=== PATIENT | male | born 1960 | race Caucasian/White ===

== ENCOUNTER 2022-04-30 08:24 | Inpatient (IN) | payer OTHER, SELFPAY ==
[2022-04-30] VITALS (14 sets, daily range): BP systolic 99–136; BP diastolic 43–80; PULSE 76–103; RESP 16–18; TEMP 36.3–37.3; O2SAT 76–99; BMI 32.8
[2022-04-30] MEDS: Gabapentin 600 MG Tablet PO (09:23)
[2022-04-30] MEDS: Acetaminophen 500 MG Tablet 1000 MG PO ×3 (09:23→21:02)
[2022-04-30] MEDS: Lactated Ringers 1,000 ML 999 ML IV (09:24)
[2022-04-30 09:31] LABS: Bedside Glucose 124 mg/dL (74-106)
[2022-04-30 09:38] LABS: International Normalized Ratio 1.1; Partial Thromboplast Time 28.2 Seconds (24.1-36.2); Prothrombin Time (Protime)PT. 14.2 SECONDS (11.7-14.9)
[2022-04-30 09:40] LABS: AST(SGOT) 32 U/L (15-37); Alanine Aminotransfer ALT/SGPT 55 U/L (16-61); Albumin, Serum 3.6 g/dL (3.2-5.0); Alkaline Phosphatase 78 U/L (45-117); Bilirubin, Direct 0.14 mg/dL (0.00-0.30); Globulin 4.4 g/dL (2.2-4.2); Magnesium 2.1 mg/dL (1.6-2.6)
[2022-04-30] MEDS: Magnesium 1 GM over 15 mins IV (10:43)
[2022-04-30] MEDS: TXA 1000mg in NS100 100ml (IVPB at Closure) 660 MG IV (11:20)
[2022-04-30 11:26] LABS: Erythrocyte Sedimentation Rate 57 mm/hr (0-20)
[2022-04-30 11:30] LABS: Absolute Lymphocyte Count 1.59 X10^3/uL (0.83-4.51); Absolute Neutrophil Count 9.2 X10^3/uL (2.0-7.7); Basophil# 0.06 X10^3/uL; Basophil% 0.5 % (0-1); Eosinophil# 0.31 X10^3/uL; Eosinophils% 2.5 % (0-5); Hematocrit 42.4 % (40-54); Hemoglobin 14.1 g/dL (13.0-16.5); Lymphocyte # 1.59 X10^3/ul (0.83-4.51); Lymphocyte % 12.9 % (19-41); Mean Corp Hgb Conc 33.3 g/dL (32-36); Mean Corpuscular Hgb 28.8 pg (27.0-32.0); Mean Corpuscular Volume 86.7 fL (80-94); Mean Platelet Vol. 10.7 fl (6.2-12.0); Monocyte# 1.04 X10^3/uL; Monocyte% 8.5 % (0-10); NRBC Flagged by Analyzer 0 % (0-5); Neutrophil # 9.21 X10^3/uL (2.7-7.7); Neutrophil % 74.9 % (47-70); Platelet Count 446 K/mm3 (150-450); RBC Distribution Width CV 13.7 % (11.6-14.6); RBC Distribution Width SD 43.7 fl (35.1-43.9); Red Blood Count 4.89 M/mm3 (4.6-6.2); White Blood Count 12.3 K/mm3 (4.4-11.0)
[2022-04-30] MEDS: Lactated Ringers 1,000 ML 75 ML IV ×2 (11:30→12:45)
[2022-04-30] MEDS: Cefazolin 2 GM in 0.9% Normal Saline 100 ML IV (12:21)
[2022-04-30] MEDS: TXA 1000mg in NS100 100ml (IVPB at Incision) 660 MG IV (12:48)
--- NOTE | 2022-04-30 12:58 | OP.PCM_ITS ---
Report of Operation Date of Procedure: 04/30/22 Pre-Operative Diagnosis: Right total knee postoperative draining wound Post-Operative Diagnosis: Right total knee postoperative draining wound Surgery/Procedure Performed:: Irrigation debridement with sinus tract excision right total knee with complete synovectomy and polyethylene exchange. Description of Surgical Findings:: 2 small sinus tracts from the incision were debrided. Initially the prepatellar area did not appear to communicate however there was some suspicious distal area and deep irrigation debridement was commenced. Surgeon: Jose Rafael Gonzalez water registrar: Sal Barnett Type of Anesthesia: Spinal Anesthesiologist: Juni Hatfield Special Medications: Ancef Specimen's removed: 3 separate specimens from the deep joint were sent for culture. 1 superficial specimen from the prepatellar area was sent for culture. Estimated Blood Loss (mL): 100 mL Fluids Replaced: 1500 mL crystalloid Description of Procedure: 61 yo m history of r TKA in 2 weeks presents with proximal wound breakdown and purulent drainage. Reviewed options were discussed the patient. Based on acuity of the symptoms and organism irrigation debridement with polyethylene exchange is recommended. Risks and benefits of the procedure were discussed with the patient including but not limited to blood loss, DVTs, PEs, neurovascular damage, infection, general risk of anesthesia including loss of life. Demonstrated understanding and was able to sign informed consent. On the date of procedure patient'sr lower extremity was marked in the preoperative area. The patient was then taken back to the operating room where the patient was placed on the table in the supine position. All bony prominences were identified a well-padded. Anesthesia assumed control of the C-spine and airway and remained controlled throughout the remainder of the procedure. A tourniquet was placed on the operative thigh and the leg was prepped in a sterile fashion. The surgeon then scrubbed at this time .Upon reentering the room left lower extremity was draped in a standard orthopedic fashion. A timeout was then called and everyone agreed upon the side, the site, the procedure to be performed, patient's identity and antibiotics given. A midline skin incision was made and sharp dissection was taken down through skin subcutaneous tissue and fat. The proximal portion of the wound had 2 small draining sinuses which were excised. Once we got through the initial skin incision there was a large collection of fluid in the prepatellar area with florid amount of synovium in this area. The appropriate flaps were elevated medially and laterally. At this point the superficial area in the prepatellar space was grossly debrided and 1.5 L of normal saline were used to irrigate out this area under low-pressure lavage. We explored the arthrotomy at this time there not appear to be a direct communication initially. However as we begin to remove the sutures distally there was some communication verifying her decision to proceed with deep irrigation debridement. His arthrotomy was identified and the standard medial parapatellar incision was made and the patella was subluxed laterally. The standard deep MCL release was done. At this point an aggressive synovectomy commenced. Our attention was first turned towards the subpatellar pouch and all suspicious synovium and tissues were debrided. We then directed our attention towards medial lateral gutters were these tissues were aggressively debrided. Knee was then flexed up the polyethylene was removed. Once polyethylene was removed we did the remainder of the synovium in the medial and lateral gutters and along the lateral structures and MCL. We then debrided the posterior knee. Knee was flexed up and culture was taken from the femoral notch. And also there was a membrane beneath the tibial baseplate that was removed and sent for culture. He had completed our synovectomy and were happy with the joint. We then used a chlorahexadine scrub sponge and physically scrub the metal implants using a scrub sponge but nothing abrasive. We also scrubbed the remainder of the wound with chlorhexidine. 6 L of normal saline were then irrigated throughout the wound with low-pressure lavage and the wound was once again explored. All remaining tissue that was suspicious was seen in the wound was once again irrigated with normal saline. 9 mm polyethylene was then opened and put back into place after appropriate trialing. Tourniquet was let down and hemostasis was obtained as well as possible. Once the final components were placed the wound was copiously irrigated with normal saline solution. The wound was closed in a layer arenas fashion using #1 vicryl interrupted sutures for the arthrotomy, 2-0 interrupted Vicryl for the subcuticular layer and carlotta for final skin closure. A sterile compressive dressing was then placed. The patient was then awakened from anesthesia, transferred to the [facility] and transferred to the PACU for recovery. Post op plan Patient be placed on Ancef and vancomycin overnight. Infectious disease will be consulted for postoperative IV antibiotic management. Aspirin 81 mg twice daily for DVT prophylaxis.. Continue to mobilize patient with range of motion and weightbearing as tolerated. My physician grout pump operator (PE) was a vital part of this case. They were important in appropriate retraction during the case, and protection of soft tissues during bony cuts. Their intimate knowledge of the case and my steps aided in safe and expedient completion of the procedure as well as appropriate position of the leg during the case. They were also vital in assisting with closure under my direct supervision. Complications No intraoperative complications Admit VTE Documentation VTE Present on Admission: No VTE Mechan Device Prophylaxis: SCD's and Thigh High YANELIS Hose VTE Pharm Prophylaxis ordered?: Yes
--- NOTE | 2022-04-30 14:20 | RAD_ITS ---
HISTORY post op -- AP and Lateral xray of operative knee in PACU. TECHNIQUE: XR Knee 1 or 2 Views. COMPARISON: None. FINDINGS: BONES : No acute fracture identified. No abnormal periprosthetic lucency seen. JOINTS: Right knee in place without dislocation. Blank SOFT TISSUES: Postoperative air and edema noted. RAD/Knee 1 or 2 Views IMPRESSION: Satisfactory postoperative alignment of right knee arthroplasty. Electronically Signed: Octavia Huerta MD at 14:49 EDT ,
--- NOTE | 2022-04-30 15:18 | CON.PCM.HO_ITS ---
Assessment & Plan Assessment/Plan (1) Prosthetic joint infection: PLAN: Plan 1. Right knee postoperative sinus tract with purulent drainage status post sinus tract excision, right total knee with complete synovectomy and polyethylene exchange on 04/30/2022: Patient had irrigation and drainage and sinus tract excision. PT and OT ordered. Patient voided urine spontaneously after surgery. On stool softener. Patient is on vancomycin and cefazolin. On a stool softener, senna S. On meloxicam, opioid medications and gabapentin for pain control. 2. Hypertension: Blood pressure in normal range. Patient on amlodipine, benazepril 3. Dyslipidemia: Continue home dose of statin. Patient on atorvastatin 40 mg daily, ezetimibe and Vascepa. Continued 4. Obstructive sleep apnea: Patient does not uses CPAP and does not want to use it. 5. VT prophylaxis: As per discretion of operative surgery. Aspirin 81 mg twice daily. Patient on YANELIS hose. HPI Consult Data Date of Consult: 04/30/22 HPI Narrative Reason for Consultation: Medical management of hypertension, dyslipidemia and sleep apnea HPI Narrative: JOSE MARTIN CASTREJON, is a 61 M with history of right knee postop sinus wound with purulent drainage was admitted after elective surgery. Patient had irrigation debridement, excision of sinus tract, right total knee with complete synovectomy and polyethylene exchange. Patient complains of right knee pain. He said it is more than what he had in the previous right knee arthroplasty. Patient has voided spontaneously urine. No burning micturition. No fever or chills. Denies chest pain shortness of breath, dizziness. Patient denies history of coronary artery disease CHF but has history of hypertension and dyslipidemia. Has sleep apnea but does not want to use CPAP. He does not uses oxygen at night at home. [facility] Medical History Ambulates with cane Anxiety Back pain Chewing tobacco use Easy bruising High cholesterol History of edema History of pain when walking Hypertension Loss of hearing Open wound Passed out Restless legs Shortness of breath on exertion Walker as ambulation aid Wears glasses Home Medications acetaminophen 325 mg tablet (Tylenol) 1,000 mg PO TID PAIN 04/29/22 [History Last Taken Unknown] amlodipine 5 mg tablet 5 mg PO DAILY BP 04/29/22 [History Last Taken Unknown] amlodipine 5 mg-benazepril 40 mg capsule 1 cap PO DAILY BP 04/29/22 [History Last Taken Unknown] aspirin 81 mg tablet,delayed release 81 mg PO DAILY HEART 04/29/22 [History Last Taken Unknown] atorvastatin 40 mg tablet 40 mg PO DAILY CHOLESTEROL 04/29/22 [History Last Taken Unknown] doxycycline monohydrate 100 mg capsule 100 mg PO BID ANTIBIOTIC 04/29/22 [Histor y Last Taken Unknown] ezetimibe 10 mg tablet 10 mg PO DAILY CHOLESTEROL 04/29/22 [History Last Taken Unknown] famotidine 20 mg tablet 20 mg PO DAILY SUPPLEEMNT 04/29/22 [History Last Taken Unknown] icosapent ethyl 1 gram capsule (Vascepa) 2 g PO BID SUPPLEMENT 04/29/22 [History Last Taken Unknown] melatonin 5 mg capsule 5 mg PO QHS SLEEP 04/29/22 [History Last Taken Unknown] meloxicam 15 mg tablet 7.5 mg PO DAILY PAIN 04/29/22 [History Last Taken Unknown] oxycodone 5 mg tablet 5 mg PO Q6H PRN Pain 04/29/22 [History Last Taken Unknown] Allergy/AdvReac Type Severity Reaction Status Date / Time No Known Allergies Allergy Verified 04/29/22 12:56 Surgical History Hx of total knee arthroplasty Hx of wisdom tooth extraction Social History Smoking Status: Current every day smoker tobacco type: smokeless tobacco ROS ROS Narrative Constitutional: Reports fatigue and weakness. Obese person. HEENT: Reports systems reviewed and no addt'l complaints, except as documented Respiratory/Chest: Denies chest pain, shortness of breath at rest or with exertion Gastrointestinal: Denies coffee ground emesis, hematemesis or vomiting Genitourinary: Voiding urine spontaneously. Denies burning urination or new urinary tract symptoms Musculoskeletal: Right knee surgery today, covered with dressing, ice bag and YANELIS hose, Neurologic: Denies seizure-like activity skin: Right knee postop sinus tract excision. Surgical dressing. Endocrinology: Reports systems reviewed and no addt'l complaints, except as documented Hematologic/Lymphatic: Reports systems reviewed and no addt'l complaints, except as documented Rest 14 ROS are negative except as mentioned in HPI Physical Exam Narrative Physical exam General: Alert, Oriented x3, Cooperative HEENT: Atraumatic, PERRLA, EOMI, Normocephalic Oral: Deep oropharyngeal structures not completely visualized. No Gingival or Mucosal Lesions/ Ulcerations Neck: Short and wide neck. Supple, No JVD, Negative Carotid Bruits Lungs: Air entry diminished in bilateral lung bases. No crepitation/rhonchi Cardiovascular: Regular rate, Regular Rhythm, Normal S1, Normal S2, No murmurs Abdomen: Bowel Sounds Present, Soft, Non Tender, Non-Distended : No renal angle tenderness. No suprapubic tenderness. Extremities: No edema, Capillary Refill Less than 3 Seconds Skin: No rashes, No breakdown Musculoskeletal: Right knee surgical dressing dry. Covered with ice bag. No Tenderness to Palpation of other joints or Extremities Neurological: Cranial nerves II-XII grossly intact, DTR 2+/4 and Symmetrical, Neuro grossly intact Psych/Mental Status: Flat affect. Lab / Micro Data Result Diagrams: 04/30/22 09:01 Labs: Laboratory Results - last 24 hr 04/30/22 09:00: POC Glucose 124 H 04/30/22 09:01: PT 14.2, INR 1.1, APTT 28.2 04/30/22 09:01: Magnesium 2.1, Total Bilirubin 0.50, Direct Bilirubin 0.14, AST 32, ALT 55, Alkaline Phosphatase 78, Total Protein 8.0, Albumin 3.6, Globulin 4.4 H 04/30/22 09:01: WBC 12.3 H, RBC 4.89, Hgb 14.1, Hct 42.4, MCV 86.7, MCH 28.8, MCHC 33.3, RDW Std Deviation 43.7, RDW Coeff of Maribell 13.7, Plt Count 446, MPV 10.7, Immature Gran % (Auto) 0.700, Neut % (Auto) 74.9 H, Lymph % (Auto) 12.9 L, [place] % (Auto) 8.5, Eos % (Auto) 2.5, Baso % (Auto) 0.5, Absolute Neuts (auto) 9.2 H, Absolute Lymphs (auto) 1.59, Nucleated RBC % 0 04/30/22 09:01: ESR 57 H 04/30/22 09:01: C-React Prot Ext Range 64.90 H Micro: Microbiology 04/30/22 Unknown Incision/Surgical Site Gram Stain - Final 04/30/22 Unknown Incision/Surgical Site Gram Stain - Final 04/30/22 Unknown Incision/Surgical Site Gram Stain - Final 04/30/22 Unknown Wound - Leg, Right Gram Stain - Final Radiology Impression Knee X-Ray 04/30/22 14:20 IMPRESSION: Satisfactory postoperative alignment of right knee arthroplasty. Electronically Signed: Octavia Huerta MD at 14:49 EDT , Charges/Coding Visit Charges Office Visits / Consults: [id number] IP Consult L3
[2022-04-30] MEDS: Morphine 4 MG/ML Syringe IV ×2 (15:21→18:17)
[2022-04-30] MEDS: Ensure Surgery 237 ML LIQUID PO (16:58)
[2022-04-30] MEDS: oxyCODONE 5 MG Tablet PO ×2 (16:58→21:03)
[2022-04-30] MEDS: Cefazolin 1 GM/50 ML BAG IV (20:04)
[2022-04-30] MEDS: Aspirin 81 MG TAB.CHEW PO (21:02)
[2022-04-30] MEDS: MELATONIN 10 MG TABLET 5 MG PO (21:02)
[2022-04-30] MEDS: Senna/Docusate Sodium 1 Tablet 2 TABLET PO (21:02)
[2022-05-01] VITALS (7 sets, daily range): BP systolic 113–133; BP diastolic 72–85; PULSE 75–88; RESP 16–18; TEMP 36.5–37.1; O2SAT 92–98
[2022-05-01] MEDS: Acetaminophen 500 MG Tablet 1000 MG PO ×3 (04:40→20:30)
[2022-05-01] MEDS: oxyCODONE 5 MG Tablet PO ×3 (04:40→20:29)
[2022-05-01] MEDS: Cefazolin 1 GM/50 ML BAG IV (04:43)
[2022-05-01 06:39] LABS: Hematocrit 32.3 % (40-54); Hemoglobin 10.6 g/dL (13.0-16.5); Mean Corp Hgb Conc 32.8 g/dL (32-36); Mean Corpuscular Volume 88.5 fL (80-94); Mean Platelet Vol. 10.1 fl (6.2-12.0); Platelet Count 285 K/mm3 (150-450); RBC Distribution Width CV 13.8 % (11.6-14.6); RBC Distribution Width SD 44.5 fl (35.1-43.9); Red Blood Count 3.65 M/mm3 (4.6-6.2); White Blood Count 9.1 K/mm3 (4.4-11.0)
--- NOTE | 2022-05-01 07:00 | PN.ORTHO_ITS ---
Subjective Subjective The patient was sitting in bed upon examination. Patient denies any chest pain, shortness of breath, dizziness, lightheadedness, nausea or vomiting, or calf pain. Pain is controlled on medications. No adverse overnight events. Patient overall is doing well this morning. He does have pain in the right knee but controlled on medications. He currently has incisional wound VAC with no drainage in the canister or tubing. Infectious disease was consulted but has not seen the patient as of this morning yet. He is currently on vancomycin and Ancef. Intraoperative cultures are in chart. Objective Data Objective Data Vital Signs: Vital Signs Temp Pulse Resp BP Pulse Ox O2 Del Method O2 Flow Rate 97.7 F L 80 16 113/72 95 Nasal Cannula 2 05/01/22 02:28 05/01/22 02:28 05/01/22 02:28 05/01/22 02:28 05/01/22 02:28 05/01/22 03:00 05/01/22 03:00 Oxygen Flow Rate (L/min) 2 Oxygen Delivery Method Nasal Cannula Weight: 116 kg Body Mass Index (BMI) 32.8 Intake & Output: Intake and Output for Last 24 Hours 04/29/22 04/30/22 05/01/22 23:59 23:59 23:59 Intake Total 3660.75 / 4110.75 2191.25 / 2191.25 Balance 3660.75 / 4110.75 2191.25 / 2191.25 Lab / Micro Data Result Diagrams: 05/01/22 05:30 05/01/22 05:30 Labs: Laboratory Results - last 24 hr 04/30/22 09:00: POC Glucose 124 H 04/30/22 09:01: PT 14.2, INR 1.1, APTT 28.2 04/30/22 09:01: Magnesium 2.1, Total Bilirubin 0.50, Direct Bilirubin 0.14, AST 32, ALT 55, Alkaline Phosphatase 78, Total Protein 8.0, Albumin 3.6, Globulin 4.4 H 04/30/22 09:01: WBC 12.3 H, RBC 4.89, Hgb 14.1, Hct 42.4, MCV 86.7, MCH 28.8, MCHC 33.3, RDW Std Deviation 43.7, RDW Coeff of Maribell 13.7, Plt Count 446, MPV 10.7, Immature Gran % (Auto) 0.700, Neut % (Auto) 74.9 H, Lymph % (Auto) 12.9 L, [place] % (Auto) 8.5, Eos % (Auto) 2.5, Baso % (Auto) 0.5, Absolute Neuts (auto) 9.2 H, Absolute Lymphs (auto) 1.59, Nucleated RBC % 0 04/30/22 09:01: ESR 57 H 04/30/22 09:01: C-React Prot Ext Range 64.90 H 05/01/22 05:30: WBC 9.1, RBC 3.65 L, Hgb 10.6 L, Hct 32.3 L, MCV 88.5, MCH 29.0, MCHC 32.8, RDW Std Deviation 44.5 H, RDW Coeff of Maribell 13.8, Plt Count 285, MPV 10.1 Micro: Microbiology 04/30/22 Unknown Incision/Surgical Site Gram Stain - Final 04/30/22 Unknown Incision/Surgical Site Gram Stain - Final 04/30/22 Unknown Incision/Surgical Site Gram Stain - Final 04/30/22 Unknown Wound - Leg, Right Gram Stain - Final Radiography Diagnostic Testing: Radiology Impression Knee X-Ray 04/30/22 14:20 IMPRESSION: Satisfactory postoperative alignment of right knee arthroplasty. Electronically Signed: Octavia Huerta MD at 14:49 EDT Reading Location ID and State: [facility] / [place] Tel , Service support , Physical Exam Narrative Vital signs stable and afebrile. SCDs and YANELIS hose are in place bilaterally Patient is able to plantarflex and dorsiflex actively. Sensation is intact to light touch to saphenous, sural, superficial and deep peroneal, and tibial distribution. Prevena incisional wound VAC currently in place with no drainage in canister or tubing. No surrounding erythema. Negative Homans bilaterally, negative signs and symptoms of DVT. Const alert, oriented x3 and no apparent distress Assessment & Plan Assessment/Plan (1) Prosthetic joint infection: PLAN: 1. S/P irrigation debridement with sinus tract excision right total knee with complete synovectomy and polyethylene exchange POD #1 2. Continue Pain Medications: Tylenol, meloxicam, oxycodone 3. DVT Prophylaxis: Take 81 mg aspirin twice daily for 4 weeks postoperatively for DVT prophylaxis. Patient denies previous history of DVT or pulmonary embolism 4. PT/OT: Weightbearing as tolerated with walker 5. H & H: 10.6/32.3, asymptomatic. Postoperative anemia secondary to acute blood loss versus dilutional from surgery without any intra operative complications., asymptomatic. Estimated blood loss and surgery 100 mL 6. Continue infectious disease consultation: Appreciate input with management of antibiotics. Current tissue specimen was reviewed with Gram stain positive on the prepatellar pouch with 1+ gram-positive cocci and 1+ intracellular gram- positive cocci. Culture pending. Remaining deep cultures are currently without growth on gram stain or culture. Patient is currently on vancomycin and Ancef. 7. Continue postoperative medical management per medicine 8. Continue incisional wound VAC: Currently no drainage in canister or tubing. Will remain on for 1 week postoperatively. 9. Encouraged Incentive Spirometry 10. Disposition: Patient is doing well this morning. At this time we are pablo ting on recommendations from infectious disease for antibiotics and probable PICC line with IV antibiotics for 6 weeks postoperatively. Patient will continue with physical therapy while in the hospital working on range of motion and strength. Continue with wound VAC for 1 week postoperatively. I have reviewed the [place] Automated Rx Reporting System (OARRS) report for this patient for refill pattern and other prescriber involvement as part of the appropriate surveillance for the provision of acute and chronic controlled medications. The report was requested and reviewed on the date of this entry and was considered in the prescribing process. This dictation was created using voice recognition software. Phonetic and/or grammatical errors may exist.
[2022-05-01 07:03] LABS: Anion Gap 4 (5-15); BUN 19 mg/dL (7-18); BUN/Creat Ratio 22.5 RATIO (10-20); Calcium,Total 8.4 mg/dL (8.5-10.1); Chloride 106 mmol/L (98-107); Creatinine, Serum 0.84 mg/dL (0.70-1.30); EST Glomerular Filtration Rate 99 mL/min (>60); Est Glom Filt Rate - Afr Amer 119 mL/min (>60); Estimated Creatinine Clearance 108.73 ml/min; Glucose 97 mg/dL (74-106); Potassium 4.3 mmol/L (3.5-5.1); Sodium Level 139 mmol/L (136-145)
[2022-05-01] MEDS: Ensure Surgery 237 ML LIQUID PO (08:04)
[2022-05-01] MEDS: Aspirin 81 MG TAB.CHEW PO ×2 (08:04→22:25)
[2022-05-01] MEDS: Atorvastatin Calcium 40 MG Tablet PO (08:05)
[2022-05-01] MEDS: amLODIPine 5 MG Tablet PO ×4 (08:05→14:33)
[2022-05-01] MEDS: Senna/Docusate Sodium 1 Tablet 2 TABLET PO ×2 (08:05→22:25)
[2022-05-01] MEDS: Ezetimibe 10 MG Tablet PO (08:06)
[2022-05-01] MEDS: Famotidine 20 MG Tablet PO (08:06)
[2022-05-01] MEDS: Lisinopril 40 MG Tablet PO (08:07)
--- NOTE | 2022-05-01 09:45 | PN.HOSP_ITS ---
Subjective Subjective Patient seen and examined. He has no active complaints and had an uneventful night. Review of systems is otherwise negative. He has remained hemodynamically stable. Objective Data Objective Data Vital Signs: Vital Signs Temp Pulse Resp BP Pulse Ox O2 Del Method O2 Flow Rate 97.8 F 75 18 113/72 98 Room Air 2 05/01/22 08:13 05/01/22 08:13 05/01/22 08:14 05/01/22 02:28 05/01/22 08:14 05/01/22 08:14 05/01/22 09:16 Oxygen Flow Rate (L/min) 2 Oxygen Delivery Method Room Air Weight: 255 lb 11.779 oz Body Mass Index (BMI) 32.8 Intake & Output: Intake and Output for Last 24 Hours 04/29/22 04/30/22 05/01/22 23:59 23:59 23:59 Intake Total 3660.75 / 4110.75 2191.25 / 2191.25 Balance 3660.75 / 4110.75 2191.25 / 2191.25 Lab / Micro Data Result Diagrams: 05/01/22 05:30 05/01/22 05:30 Labs: Laboratory Results - last 24 hr 04/30/22 09:01: WBC 12.3 H, RBC 4.89, Hgb 14.1, Hct 42.4, MCV 86.7, MCH 28.8, MCHC 33.3, RDW Std Deviation 43.7, RDW Coeff of Maribell 13.7, Plt Count 446, MPV 10.7, Immature Gran % (Auto) 0.700, Neut % (Auto) 74.9 H, Lymph % (Auto) 12.9 L, [place] % (Auto) 8.5, Eos % (Auto) 2.5, Baso % (Auto) 0.5, Absolute Neuts (auto) 9.2 H, Absolute Lymphs (auto) 1.59, Nucleated RBC % 0 04/30/22 09:01: ESR 57 H 04/30/22 09:01: C-React Prot Ext Range 64.90 H 05/01/22 05:30: WBC 9.1, RBC 3.65 L, Hgb 10.6 L, Hct 32.3 L, MCV 88.5, MCH 29.0, MCHC 32.8, RDW Std Deviation 44.5 H, RDW Coeff of Maribell 13.8, Plt Count 285, MPV 10.1 05/01/22 05:30: Sodium 139, Potassium 4.3, Chloride 106, Carbon Dioxide 29.0, Anion Gap 4 L, BUN 19 H, Creatinine 0.84, Estim Creat Clear Calc 108.73, Est GFR (MDRD) Af Amer 119, Est GFR (MDRD) Non-Af 99, BUN/Creatinine Ratio 22.5 H, Glucose 97, Calcium 8.4 L Micro: Microbiology 04/30/22 Unknown Wound - Leg, Right Gram Stain - Final 04/30/22 Unknown Wound - Leg, Right Wound Culture - Preliminary Staphylococcus aureus 04/30/22 Unknown Incision/Surgical Site Gram Stain - Final 04/30/22 Unknown Incision/Surgical Site Gram Stain - Final 04/30/22 Unknown Incision/Surgical Site Gram Stain - Final Radiography Diagnostic Testing: Radiology Impression Knee X-Ray 04/30/22 14:20 IMPRESSION: Satisfactory postoperative alignment of right knee arthroplasty. Electronically Signed: Octavia Huerta MD at 14:49 EDT , Physical Exam Const alert, oriented x3 and no apparent distress HEENT head/scalp atraumatic, moist oral mucous membranes and oropharynx normal Head and Scalp: normocephalic Mouth: oral and palatal mucosa normal Eyes PERRL, EOMs intact bilaterally and conjunctivae normal Neck no lymphadenopathy and supple Resp normal respiratory effort, no retractions, no use of accessory muscles and clear to auscultation bilaterally Cardio regular rate, regular rhythm, S1 normal heart sound, S2 normal heart sound and no murmurs GI normal to inspection, nondistended, normoactive bowel sounds, soft to palpation, non-tender and non-distended Extremity Extremity Narrative: intact dressing over right knee, with wound vac in place Neuro oriented x3, CN's II-XII intact bilaterally and no focal motor deficits Sensorium / Orientation: awake and alert Psych affect normal Assessment & Plan Assessment/Plan (1) Prosthetic joint infection: (2) HTN (hypertension): PLAN: Plan #Right knee post op sinus tract with purulent drainage * s/p sinus tract excision with right total knee polyethylene exchange * today is POD 1 * management as per orthopedic surgery * on IV vancomycin and cefazolin * incentive spirometry * PT/OT on board * #Hypertension: well controlled. On amlodipine and benazepril. Will continue #Dyslipidemia: on statin, ezetimibe and vascepa #SHANNA: not on CPAP DVT prophylaxis: on aspirin 81mg bid as per primary team orthopedic surgery Charges/Coding Visit Charges Inpatient E&M: 46580 Subs Hosp L2
--- NOTE | 2022-05-01 10:00 | CASEMGMT ---
RN VI Face to Face with patient for initial transition planning/care coordination assessment. RN CM introduced self and role at [facility]. Patient lying in bed, alert and oriented. Patient willing to participate in assessment and is able to answer all questions appropriately. Care providers, pharmacy, and demographics verified. Patient wishes to discharge home, will monitor for HHC for possible IV ATBs at discharge. Patient states he has no further needs or concerns at this time. CM to follow for discharge planning needs that may arise. PCP: Julio Specialists: maciel Gonzalez [facility] [place] Prescription Benefit: yes Living Will/HPOA: none LNOK: Living Arrangements: Patient lives with in a single story home with 3-4 steps with railing to enter the home. Patient states he was independent at home. Transportation: self, DME/HHC: Patient states he has walker, cane, raised toilet, and shower chair at home. No preivous HHC or SNF. CM to provide list of HHC if patient will need HHC setup at discharge. Disposition Plan: Patient to discharge home with family support and follow-up plans in place. Will monitor for HHC. Nathalie VARNER, RN, CM
--- NOTE | 2022-05-01 12:14 | PCM.CONS.GEN ---
Assessment & Plan Assessment/Plan (1) Prosthetic joint infection: PLAN: R TKA 04/14/22 at [facility]. Now s/p OR for I&D and poly exchange 04/30/[address] Gonzalez. Prepatellar pouch now growing staph aureus. No systemic symptoms. Will cover with vanc/cefazolin while cx pending. Plan will be for picc Wednesday and 6 weeks iv abx, will consider adding po rifampin for biofilm penetration prior to discharge. LFTs have been done. Will follow, thank you, d/w ortho. HPI Consult Data Date of Consult: 05/01/22 HPI Narrative Reason for Consultation: PJI HPI Narrative: JOSE MARTIN CASTREJON, is a 61 M who presented 04/30 with drainage from R knee. Had R TKA by Dr. Gonzalez at [facility] on 04/14. On 04/23, noticed new anterior blister with serous fluid. Went to PT, dressing put on it which rubbed and popped the blister. Then developed multiple purulent blisters. Contacted ortho, started on doxy, took for 3 days then taken to OR 04/[address] Gonzalez for I&D. Deep involvement was found in OR, given vanc/cefazolin sushila-op. No fever, no pain, no swelling prior to admission. Full ROS performed and neg except as noted above. [facility] Medical History Ambulates with cane Anxiety Back pain Chewing tobacco use Easy bruising High cholesterol History of edema History of pain when walking Hypertension Loss of hearing Open wound Passed out Restless legs Shortness of breath on exertion Walker as ambulation aid Wears glasses Home Medications acetaminophen 325 mg tablet (Tylenol) 1,000 mg PO TID PAIN 04/29/22 [History Last Taken Unknown] amlodipine 5 mg tablet 5 mg PO DAILY BP 04/29/22 [History Last Taken Unknown] amlodipine 5 mg-benazepril 40 mg capsule 1 cap PO DAILY BP 04/29/22 [History Last Taken Unknown] aspirin 81 mg tablet,delayed release 81 mg PO DAILY HEART 04/29/22 [History Last Taken Unknown] atorvastatin 40 mg tablet 40 mg PO DAILY CHOLESTEROL 04/29/22 [History Last Taken Unknown] doxycycline monohydrate 100 mg capsule 100 mg PO BID ANTIBIOTIC 04/29/22 [History Last Taken Unknown] ezetimibe 10 mg tablet 10 mg PO DAILY CHOLESTEROL 04/29/22 [History Last Taken Unknown] famotidine 20 mg tablet 20 mg PO DAILY SUPPLEEMNT 04/29/22 [History Last Taken Unknown] icosapent ethyl 1 gram capsule (Vascepa) 2 g PO BID SUPPLEMENT 04/29/22 [History Last Taken Unknown] melatonin 5 mg capsule 5 mg PO QHS SLEEP 04/29/22 [History Last Taken Unknown] meloxicam 15 mg tablet 7.5 mg PO DAILY PAIN 04/29/22 [History Last Taken Unknown] oxycodone 5 mg tablet 5 mg PO Q6H PRN Pain 04/29/22 [History Last Taken Unknown] Allergy/AdvReac Type Severity Reaction Status Date / Time No Known Allergies Allergy Verified 04/29/22 12:56 Surgical History Hx of total knee arthroplasty Hx of wisdom tooth extraction Social History Smoking Status: Current every day smoker tobacco type: smokeless tobacco Physical Exam Const alert, oriented x3 and no apparent distress General Appearance: cooperative and well developed HEENT normocephalic and head/scalp atraumatic Eyes PERRL and EOMs intact bilaterally Neck supple and No nodes Resp normal air movement and clear to auscultation bilaterally Cardio regular rate, regular rhythm and no murmurs GI soft to palpation, non-tender and non-distended Extremity General Extremity: Negative for edema Skin no rashes or lesions noted Skin Narrative: RLE wrapped Neuro CN's II-XII intact bilaterally Lab / Micro Data Attestation: I reviewed the patient's lab results. Result Diagrams: 05/01/22 05:30 05/01/22 05:30 Labs: Laboratory Results - last 24 hr 05/01/22 05:30: WBC 9.1, RBC 3.65 L, Hgb 10.6 L, Hct 32.3 L, MCV 88.5, MCH 29.0, MCHC 32.8, RDW Std Deviation 44.5 H, RDW Coeff of Maribell 13.8, Plt Count 285, MPV 10.1 05/01/22 05:30: Sodium 139, Potassium 4.3, Chloride 106, Carbon Dioxide 29.0, Anion Gap 4 L, BUN 19 H, Creatinine 0.84, Estim Creat Clear Calc 108.73, Est GFR (MDRD) Af Amer 119, Est GFR (MDRD) Non-Af 99, BUN/Creatinine Ratio 22.5 H, Glucose 97, Calcium 8.4 L Micro: Microbiology 04/30/22 Unknown Incision/Surgical Site Gram Stain - Final 04/30/22 Unknown Incision/Surgical Site Wound Culture - Preliminary No growth-Final to follow 04/30/22 Unknown Incision/Surgical Site Gram Stain - Final 04/30/22 Unknown Incision/Surgical Site Wound Culture - Preliminary No growth-Final to follow 04/30/22 Unknown Incision/Surgical Site Gram Stain - Final 04/30/22 Unknown Incision/Surgical Site Wound Culture - Preliminary No growth-Final to follow 04/30/22 Unknown Wound - Leg, Right Gram Stain - Final 04/30/22 Unknown Wound - Leg, Right Wound Culture - Preliminary Staphylococcus aureus Radiology Impression Knee X-Ray 04/30/22 14:20 IMPRESSION: Satisfactory postoperative alignment of right knee arthroplasty. Electronically Signed: Octavia Huerta MD at 14:49 EDT ,
--- NOTE | 2022-05-01 12:43 | PCM.RX.CS ---
Consult Pharmacy has been consulted to manage selected antiobiotic: Vancomycin Type of Consult: New start Suspected Infection: Other Labs: Sodium 139 mmol/L (136-145) 05/01/22 05:30 Potassium 4.3 mmol/L (3.5-5.1) 05/01/22 05:30 Chloride 106 mmol/L (98-107) 05/01/22 05:30 Carbon Dioxide 29.0 mmol/L (21.0-32.0) 05/01/22 05:30 Anion Gap 4 (5-15) L 05/01/22 05:30 BUN 19 mg/dL (7-18) H 05/01/22 05:30 Creatinine 0.84 mg/dL (0.70-1.30) 05/01/22 05:30 Est GFR (MDRD) Af Amer 119 mL/min (>60) 05/01/22 05:30 Est GFR (MDRD) Non-Af 99 mL/min (>60) 05/01/22 05:30 BUN/Creatinine Ratio 22.5 RATIO (10-20) H 05/01/22 05:30 Glucose 97 mg/dL (74-106) 05/01/22 05:30 Microbiology: Microbiology 04/30/22 Unknown Incision/Surgical Site Gram Stain - Final 04/30/22 Unknown Incision/Surgical Site Wound Culture - Preliminary No growth-Final to follow 04/30/22 Unknown Incision/Surgical Site Gram Stain - Final 04/30/22 Unknown Incision/Surgical Site Wound Culture - Preliminary No growth-Final to follow 04/30/22 Unknown Incision/Surgical Site Gram Stain - Final 04/30/22 Unknown Incision/Surgical Site Wound Culture - Preliminary No growth-Final to follow 04/30/22 Unknown Wound - Leg, Right Gram Stain - Final 04/30/22 Unknown Wound - Leg, Right Wound Culture - Preliminary Staphylococcus aureus Goal Trough: 15-20 mcg/mL Pharmacy Plan for Drug Dosing: NEW START IV VANCOMYCIN Consulting Physician: Dr. Le Indication: Prosthetic Knee infection Goal Trough: 15-20 SrCr: 0.84 CrCl: 108 mL/min Comments: Patient was ordered a loading dose and high trough. Patient had 1750mg IV x2 (preop and 12hrs post-op, last dose 05/01 @0227). Since the patient has already had 2 doses of q12hr dosing, will not give loading dose. Will also schedule a trough prior to the 5th TOTAL vancomycin dose to determine if Q8hr frequency is appropriate for this patient. Vancomycin Dose: 1250mg IV Q8h to start 05/02 @1300 (~11hrs from last post-op dose) Pending Level: 05/02/22 @0430, prior to 5th TOTAL dose of vancomycin Pharmacy Service will continue to monitor and adjust dosing as required.
--- NOTE | 2022-05-01 13:16 | CASEMGMT ---
Addendum entered by Priyanka Melchor 05/01/22 16:50: states she would be willing to learn IV atb infusion and she also has a friend who is a nurse that will be assisting w/IV infusion @ home as well. Addendum entered by Priyanka Melchor 05/01/22 15:42: Pt had been going to [facility] for OP therapy. and pt made aware insurance will not approve for both HHC and OP therapy at the same time and therapy can be done @ home w/HHC. They voice understanding and agreeable to same. Addendum entered by Priyanka Melchor 05/01/22 15:25: Per [facility], pt's insurance, MMO, requires prior auth for HHC. She states she will submit for prior auth today for potential SOC Wednesday. and pt made aware. Order placed for HHC: SN and PT/OT. Addendum entered by Priyanka Melchor 05/01/22 15:07: ASHA LEBRON to room. @ bedside. Discussed HHC, IV atb's, and infusion co and questions answered. looked over HHC and infusion co lists. 1st choice for HHC is [facility] and [facility] for infusion co. Call placed to [facility] and referral made. She was made aware anticipated d/c is Wed or . Plan is for PICC insertion on Wednesday and cultures are still pending before final determination of what IV atb's pt will be discharged home on will be made. She states they are able to accept pt. and pt made aware. ASHA LEBRON to f/u with [facility] on Wednesday re: further details once available. ASHA LEBRON has spoken w/Toya @ [facility] for insurance benefits. Per Toya, pt has met his deductible for the year and he will be covered @ 100%. and pt made aware. Original Note: ASHA LEBRON NOTE: ASHA LEBRON to room to talk w/pt, who is sitting up in recliner chair in room. Awake/alert. Introduced self and role. A list of HHC providers including quality and resource use data and consistent with the patient?s preferred geographic region, medical needs, and insurance network were provided from the [employer] Guide. Pt also provided w/list of infusion companies for IV atb/supplies. Pt states his will be coming in to see him soon and he will review the lists w/her. Radha SEAMANN RN CM
[2022-05-01] MEDS: Cefazolin 2 GM in 0.9% Normal Saline 100 ML IV ×2 (13:25→23:01)
[2022-05-01] MEDS: 0.9% NaCl Peripheral Flush Adult/Peds IV (13:31)
[2022-05-01] MEDS: MELATONIN 10 MG TABLET 5 MG PO (22:25)
[2022-05-02] MEDS: oxyCODONE 5 MG Tablet PO ×3 (00:31→12:25)
[2022-05-02 02:30] VITALS: BP 120/85; PULSE 75; RESP 16; TEMP 36.4; O2SAT 99
[2022-05-02 04:46] LABS: Hemoglobin 10.3 g/dL (13.0-16.5); Mean Corp Hgb Conc 32.2 g/dL (32-36); Mean Corpuscular Hgb 28.1 pg (27.0-32.0); Mean Corpuscular Volume 87.4 fL (80-94); Platelet Count 303 K/mm3 (150-450); RBC Distribution Width CV 13.3 % (11.6-14.6); RBC Distribution Width SD 42.8 fl (35.1-43.9); Red Blood Count 3.66 M/mm3 (4.6-6.2); White Blood Count 7.8 K/mm3 (4.4-11.0)
[2022-05-02 05:08] LABS: Vancomycin, Trough Level 15.9 ug/mL (5.0-15.0)
[2022-05-02] MEDS: Acetaminophen 500 MG Tablet 1000 MG PO ×3 (05:11→23:11)
--- NOTE | 2022-05-02 05:15 | PCM.RX.CS ---
Consult Pharmacy has been consulted to manage selected antiobiotic: Vancomycin Type of Consult: Follow-up Labs: Sodium 139 mmol/L (136-145) 05/01/22 05:30 Potassium 4.3 mmol/L (3.5-5.1) 05/01/22 05:30 Chloride 106 mmol/L (98-107) 05/01/22 05:30 Carbon Dioxide 29.0 mmol/L (21.0-32.0) 05/01/22 05:30 Anion Gap 4 (5-15) L 05/01/22 05:30 BUN 19 mg/dL (7-18) H 05/01/22 05:30 Creatinine 0.84 mg/dL (0.70-1.30) 05/01/22 05:30 Est GFR (MDRD) Af Amer 119 mL/min (>60) 05/01/22 05:30 Est GFR (MDRD) Non-Af 99 mL/min (>60) 05/01/22 05:30 BUN/Creatinine Ratio 22.5 RATIO (10-20) H 05/01/22 05:30 Glucose 97 mg/dL (74-106) 05/01/22 05:30 Vancomycin Trough 15.9 ug/mL (5.0-15.0) H 05/02/22 04:35 Microbiology: Microbiology 04/30/22 Unknown Incision/Surgical Site Gram Stain - Final 04/30/22 Unknown Incision/Surgical Site Wound Culture - Preliminary No growth-Final to follow 04/30/22 Unknown Incision/Surgical Site Gram Stain - Final 04/30/22 Unknown Incision/Surgical Site Wound Culture - Preliminary No growth-Final to follow 04/30/22 Unknown Incision/Surgical Site Gram Stain - Final 04/30/22 Unknown Incision/Surgical Site Wound Culture - Preliminary No growth-Final to follow 04/30/22 Unknown Wound - Leg, Right Gram Stain - Final 04/30/22 Unknown Wound - Leg, Right Wound Culture - Preliminary Staphylococcus aureus Goal Trough: 15-20 mcg/mL Pharmacy Plan for Drug Dosing: Pharmacy Service will continue to monitor and adjust dosing as required. TROUGH 15.9 @ 8 HRS. NO CHANGES, FOLLOW UP TROUGH IN 2 DAYS Follow-Up Labs: Trough Vancomycin Labs to be done on [date and time ordered]: 05/04 @ 2711
[2022-05-02] MEDS: Cefazolin 2 GM in 0.9% Normal Saline 100 ML IV ×3 (06:53→23:08)
[2022-05-02 08:30] VITALS: BP 112/74; PULSE 88; RESP 16; TEMP 36.6; O2SAT 95
[2022-05-02 08:40] VITALS: BP 112/74; PULSE 88; RESP 16; TEMP 36.6; O2SAT 95
--- NOTE | 2022-05-02 08:40 | PN.ORTHO_ITS ---
Subjective Subjective The patient was sitting in bed upon examination. Patient denies any chest pain, shortness of breath, dizziness, lightheadedness, nausea or vomiting, or calf pain. Pain is controlled on medications. No adverse overnight events. Patient states he feels burning sensation over the anterior knee. He thought that he was having some reaction to the tape from the incisional wound VAC. There is no erythema or signs of blistering or skin irritation from the tape on exam. Objective Data Objective Data Vital Signs: Vital Signs Temp Pulse Resp BP Pulse Ox O2 Del Method O2 Flow Rate 97.6 F L 75 16 120/85 H 99 Nasal Cannula 2 05/02/22 02:30 05/02/22 02:30 05/02/22 02:30 05/02/22 02:30 05/02/22 02:30 05/02/22 03:00 05/02/22 03:00 Oxygen Flow Rate (L/min) 2 Oxygen Delivery Method Nasal Cannula Weight: 116 kg Body Mass Index (BMI) 32.8 Intake & Output: Intake and Output for Last 24 Hours 04/30/22 05/01/22 05/02/22 23:59 23:59 23:59 Intake Total 3660.75 / 4110.75 4786.25 / 5336.25 1375 / 1375 Balance 3660.75 / 4110.75 4786.25 / 5336.25 1375 / 1375 Lab / Micro Data Result Diagrams: 05/02/22 04:35 05/01/22 05:30 Labs: Laboratory Results - last 24 hr 05/02/22 04:35: WBC 7.8, RBC 3.66 L, Hgb 10.3 L, Hct 32.0 L, MCV 87.4, MCH 28.1, MCHC 32.2, RDW Std Deviation 42.8, RDW Coeff of Maribell 13.3, Plt Count 303, MPV 10 .0 05/02/22 04:35: Vancomycin Trough 15.9 H Micro: Microbiology 04/30/22 Unknown Wound - Leg, Right Gram Stain - Final 04/30/22 Unknown Wound - Leg, Right Wound Culture - Final Meth. resistant Staph. aureus 04/30/22 Unknown Incision/Surgical Site Gram Stain - Final 04/30/22 Unknown Incision/Surgical Site Wound Culture - Preliminary No growth-Final to follow 04/30/22 Unknown Incision/Surgical Site Gram Stain - Final 04/30/22 Unknown Incision/Surgical Site Wound Culture - Preliminary No growth-Final to follow 04/30/22 Unknown Incision/Surgical Site Gram Stain - Final 04/30/22 Unknown Incision/Surgical Site Wound Culture - Preliminary No growth-Final to follow Physical Exam Narrative Vital signs stable and afebrile. SCDs and YANELIS hose are in place bilaterally Patient is able to plantarflex and dorsiflex actively. Sensation is intact to light touch to saphenous, sural, superficial and deep peroneal, and tibial distribution. Prevena incisional wound VAC intact and there is no surrounding erythema or skin irritation from the tape. No drainage in the canister or tubing. Negative Homans bilaterally, negative signs and symptoms of DVT. Const alert, oriented x3 and no apparent distress Assessment & Plan Assessment/Plan (1) Prosthetic joint infection: PLAN: 1. S/P irrigation debridement with sinus tract excision right total knee with complete synovectomy and polyethylene exchange POD #2 2. Continue Pain Medications: Tylenol, meloxicam, oxycodone 3. DVT Prophylaxis: Take 81 mg aspirin twice daily for 4 weeks postoperatively for DVT prophylaxis. Patient denies previous history of DVT or pulmonary embolism 4. PT/OT: Weightbearing as tolerated with walker 5. H & H: 10.3/32.0, asymptomatic. Postoperative anemia secondary to acute blood loss versus dilutional from surgery without any intra operative complications., asymptomatic. Estimated blood loss and surgery 100 mL 6. Continue infectious disease consultation: Prepatellar tissue did grow out MRSA. Deep cultures have remained negative. Patient will continue with vancomy gila and cefazolin. Per infectious disease note plan for addition of oral rifampin for biofilm penetration prior to discharge. Plan for PICC line on Wednesday and 6 weeks IV antibiotics. Case management currently involved with setting up assistance for IV antibiotics with home health. It does appear that his is acceptable for training for administration of medications at home. Patient also states they have some nurse friends that can help out. 7. Continue postoperative medical management per medicine 8. Continue incisional wound VAC: Currently no drainage in canister or tubing. Will remain on for 1 week postoperatively. There is no skin irritation or erythema from the tape. 9. Encouraged Incentive Spirometry 10. Disposition: Patient overall is doing well this morning. Pain is been controlled. Continue with formal physical therapy. Continue with the wound VAC at this time. Continue with recommendations from infectious disease with plan for PICC line on Wednesday and IV antibiotics for 6 weeks postoperatively. We will continue to follow cultures. I have reviewed the [place] Automated Rx Reporting System (OARRS) report for this patient for refill pattern and other prescriber involvement as part of the appropriate surveillance for the provision of acute and chronic controlled medications. The report was requested and reviewed on the date of this entry and was considered in the prescribing process. This dictation was created using voice recognition software. Phonetic and/or grammatical errors may exist.
[2022-05-02] MEDS: Ensure Surgery 237 ML LIQUID PO (09:00)
[2022-05-02] MEDS: Aspirin 81 MG TAB.CHEW PO ×2 (09:02→23:12)
[2022-05-02] MEDS: amLODIPine 5 MG Tablet PO ×2 (09:02→09:08)
[2022-05-02] MEDS: Atorvastatin Calcium 40 MG Tablet PO (09:02)
[2022-05-02] MEDS: Senna/Docusate Sodium 1 Tablet 2 TABLET PO ×2 (09:03→23:11)
[2022-05-02] MEDS: Famotidine 20 MG Tablet PO (09:03)
[2022-05-02] MEDS: Ezetimibe 10 MG Tablet PO (09:04)
[2022-05-02] MEDS: Lisinopril 40 MG Tablet PO (09:04)
[2022-05-02] MEDS: Meloxicam 7.5 MG Tablet PO ×2 (09:04→23:11)
--- NOTE | 2022-05-02 09:31 | PN.HOSP_ITS ---
Subjective Subjective Patient seen and examined. He has no complains and feels well. He had an uneventful night and review of systems is otherwise negative. He has remained hemodynamically stable. Objective Data Objective Data Vital Signs: Vital Signs Temp Pulse Resp BP Pulse Ox O2 Del Method O2 Flow Rate 97.8 F 88 16 112/74 95 Room Air 2 05/02/22 08:40 05/02/22 08:40 05/02/22 08:40 05/02/22 08:40 05/02/22 08:40 05/02/22 08:40 05/02/22 08:40 Oxygen Flow Rate (L/min) 2 Oxygen Delivery Method Room Air Weight: 255 lb 11.779 oz Body Mass Index (BMI) 32.8 Intake & Output: Intake and Output for Last 24 Hours 04/30/22 05/01/22 05/02/22 23:59 23:59 23:59 Intake Total 3660.75 / 4110.75 4786.25 / 5336.25 1375 / 1375 Balance 3660.75 / 4110.75 4786.25 / 5336.25 1375 / 1375 Lab / Micro Data Result Diagrams: 05/02/22 04:35 05/01/22 05:30 Labs: Laboratory Results - last 24 hr 05/02/22 04:35: WBC 7.8, RBC 3.66 L, Hgb 10.3 L, Hct 32.0 L, MCV 87.4, MCH 28.1, MCHC 32.2, RDW Std Deviation 42.8, RDW Coeff of Maribell 13.3, Plt Count 303, MPV 10.0 05/02/22 04:35: Vancomycin Trough 15.9 H Micro: Microbiology 04/30/22 Unknown Wound - Leg, Right Gram Stain - Final 04/30/22 Unknown Wound - Leg, Right Wound Culture - Final Meth. resistant Staph. aureus 04/30/22 Unknown Incision/Surgical Site Gram Stain - Final 04/30/22 Unknown Incision/Surgical Site Wound Culture - Preliminary No growth-Final to follow 04/30/22 Unknown Incision/Surgical Site Gram Stain - Final 04/30/22 Unknown Incision/Surgical Site Wound Culture - Preliminary No growth-Final to follow 04/30/22 Unknown Incision/Surgical Site Gram Stain - Final 04/30/22 Unknown Incision/Surgical Site Wound Culture - Preliminary No growth-Final to follow Physical Exam Const alert, oriented x3 and no apparent distress HEENT head/scalp atraumatic, moist oral mucous membranes and oropharynx normal Head and Scalp: normocephalic Mouth: oral and palatal mucosa normal Eyes PERRL, EOMs intact bilaterally and conjunctivae normal Neck no lymphadenopathy and supple Resp normal respiratory effort, no retractions, no use of accessory muscles and clear to auscultation bilaterally Cardio regular rate, regular rhythm, S1 normal heart sound, S2 normal heart sound and no murmurs GI normal to inspection, nondistended, normoactive bowel sounds, soft to palpation, non-tender and non-distended Extremity Extremity Narrative: intact dressing over right knee, with wound vac in place Neuro oriented x3, CN's II-XII intact bilaterally, moves all extremities and no focal motor deficits Sensorium / Orientation: awake and alert Psych affect normal Assessment & Plan Assessment/Plan (1) Prosthetic joint infection: (2) HTN (hypertension): PLAN: Plan #Right knee post op sinus tract with purulent drainage * s/p sinus tract excision with right total knee polyethylene exchange * today is POD 2 * management as per orthopedic surgery * on IV vancomycin and cefazolin; cultures are pending * incentive spirometry * PT/OT on board * #Hypertension: well controlled. On amlodipine and benazepril. Will continue #Dyslipidemia: on statin, ezetimibe and vascepa #SHANNA: not on CPAP DVT prophylaxis: on aspirin 81mg bid as per primary team orthopedic surgery Charges/Coding Visit Charges Inpatient E&M: 74220 Subs Hosp L2
[2022-05-02] MEDS: 0.9% NaCl Peripheral Flush Adult/Peds IV ×2 (14:57→18:20)
[2022-05-02 16:29] VITALS: BP 115/78; PULSE 84; RESP 16; TEMP 37.1; O2SAT 95
[2022-05-02 16:30] VITALS: BP 115/78; PULSE 84; RESP 16; TEMP 37.1; O2SAT 95
[2022-05-02 22:30] VITALS: BP 118/84; PULSE 80; RESP 16; TEMP 36.9; O2SAT 98
[2022-05-02] MEDS: MELATONIN 10 MG TABLET 5 MG PO (23:11)
[2022-05-03] VITALS (8 sets, daily range): BP systolic 123–128; BP diastolic 68–85; PULSE 80–85; RESP 16; TEMP 36.4–37.3; O2SAT 94–97
[2022-05-03] MEDS: Acetaminophen 500 MG Tablet 1000 MG PO ×3 (06:25→22:51)
[2022-05-03] MEDS: Cefazolin 2 GM in 0.9% Normal Saline 100 ML IV ×3 (06:25→22:50)
[2022-05-03 07:24] LABS: Hematocrit 31.9 % (40-54); Hemoglobin 10.8 g/dL (13.0-16.5); Mean Corp Hgb Conc 33.9 g/dL (32-36); Mean Corpuscular Hgb 29.1 pg (27.0-32.0); Mean Platelet Vol. 10.1 fl (6.2-12.0); Platelet Count 304 K/mm3 (150-450); RBC Distribution Width CV 13.3 % (11.6-14.6); RBC Distribution Width SD 41.8 fl (35.1-43.9); Red Blood Count 3.71 M/mm3 (4.6-6.2); White Blood Count 6.4 K/mm3 (4.4-11.0)
--- NOTE | 2022-05-03 07:52 | PN.ORTHO_ITS ---
Subjective Subjective The patient was sitting in bed sleeping upon examination. Patient denies any chest pain, shortness of breath, dizziness, lightheadedness, nausea or vomiting, or calf pain. Pain is controlled on medications. No adverse overnight events. Overall patient has been stable and no complaints this morning. We are waiting through the weekend to have PICC line placed tomorrow and final antibiotics set up from infectious disease for discharge. Cultures have been stable with no change from yesterday.. Objective Data Objective Data Vital Signs: Vital Signs Temp Pulse Resp BP Pulse Ox O2 Del Method O2 Flow Rate 98.4 F 80 16 128/85 H 97 Nasal Cannula 2 05/03/22 04:44 05/03/22 04:44 05/03/22 04:44 05/03/22 04:44 05/03/22 04:44 05/03/22 04:44 05/03/22 04:44 Oxygen Flow Rate (L/min) 2 Oxygen Delivery Method Nasal Cannula Weight: 116 kg Body Mass Index (BMI) 32.8 Intake & Output: Intake and Output for Last 24 Hours 05/01/22 05/02/22 05/03/22 23:59 23:59 23:59 Intake Total 4786.25 / 5336.25 3585 / 3585 385 / 385 Balance 4786.25 / 5336.25 3585 / 3585 385 / 385 Lab / Micro Data Result Diagrams: 05/03/22 06:15 05/01/22 05:30 Labs: Laboratory Results - last 24 hr 05/03/22 06:15: WBC 6.4, RBC 3.71 L, Hgb 10.8 L, Hct 31.9 L, MCV 86.0, MCH 29.1, MCHC 33.9 D, RDW Std Deviation 41.8, RDW Coeff of Maribell 13.3, Plt Count 304, MPV 10.1 Micro: Microbiology 04/30/22 Unknown Incision/Surgical Site Gram Stain - Final 04/30/22 Unknown Incision/Surgical Site Wound Culture - Final No growth aerobically. 04/30/22 Unknown Incision/Surgical Site Anaerobic Culture - Preliminary No growth in 48 hours. 04/30/22 Unknown Incision/Surgical Site Gram Stain - Final 04/30/22 Unknown Incision/Surgical Site Wound Culture - Final No growth aerobically. 04/30/22 Unknown Incision/Surgical Site Anaerobic Culture - Preliminary No growth in 48 hours. 04/30/22 Unknown Incision/Surgical Site Gram Stain - Final 04/30/22 Unknown Incision/Surgical Site Wound Culture - Final No growth aerobically. 04/30/22 Unknown Incision/Surgical Site Anaerobic Culture - Preliminary No growth in 48 hours. 04/30/22 Unknown Wound - Leg, Right Gram Stain - Final 04/30/22 Unknown Wound - Leg, Right Wound Culture - Final Meth. resistant Staph. aureus 04/30/22 Unknown Wound - Leg, Right Anaerobic Culture - Final No anaerobic bacteria isolated. Physical Exam Narrative Vital signs stable and afebrile. Patient is able to plantarflex and dorsiflex actively. Sensation is intact to light touch to saphenous, sural, superficial and deep peroneal, and tibial distribution. Prevena wound VAC in place with no skin irritation or erythema. No drainage in the tubing or canister. SCDs and YANELIS hose are in place bilaterally Negative Homans bilaterally, negative signs and symptoms of DVT. Const alert, oriented x3 and no apparent distress Assessment & Plan Assessment/Plan (1) Prosthetic joint infection: PLAN: 1. S/P irrigation debridement with sinus tract excision right total knee with complete synovectomy and polyethylene exchange POD #3 2. Continue Pain Medications: Tylenol, meloxicam, oxycodone 3. DVT Prophylaxis: Take 81 mg aspirin twice daily for 4 weeks postoperatively for DVT prophylaxis. Patient denies previous history of DVT or pulmonary embolism 4. PT/OT: Weightbearing as tolerated with walker 5. H & H: 10.8/31.9, asymptomatic. Postoperative anemia secondary to acute blood loss versus dilutional from surgery without any intra operative complications., asymptomatic. 6. Continue infectious disease consultation: Cultures have been reviewed again and no change from yesterday. Prepatellar tissue did grow out MRSA. Deep cultures have remained negative. Patient will continue with vancomycin and cefazolin. Per infectious disease note plan for addition of oral rifampin for biofilm penetration prior to discharge. Plan for PICC line on Wednesday and 6 weeks IV antibiotics. Case management currently involved with setting up assistance for IV antibiotics with home health. It does appear that his is acceptable for training for administration of medications at home. Patient also states they have some nurse friends that can help out. 7. Continue postoperative medical management per medicine 8. Continue incisional wound VAC: Currently no drainage in canister or tubing. There is no skin irritation or erythema from the tape. Plan will be for removal of Prevena wound VAC on May 08, 2022. At that time we will use ABD over the incision. 9. Encouraged Incentive Spirometry 10. Disposition: Patient is doing well and orthopedically stable today. We are waiting for patient to have PICC line established tomorrow as well as final determination of antibiotics from infectious disease. Plan will be hopefully for discharge home tomorrow. Case management is involved with setting up home health therapy for IV antibiotics. He will continue with physical therapy while in the hospital. We will continue to follow the cultures while in the hospital. Patient's pain is been well controlled. He is tolerating the wound VAC. I have reviewed the [place] Automated Rx Reporting System (OARRS) report for this patient for refill pattern and other prescriber involvement as part of the appropriate surveillance for the provision of acute and chronic controlled medications. The report was requested and reviewed on the date of this entry and was considered in the prescribing process. This dictation was created using voice recognition software. Phonetic and/or grammatical errors may exist.
[2022-05-03] MEDS: Ensure Surgery 237 ML LIQUID PO ×2 (08:10→17:11)
[2022-05-03] MEDS: Senna/Docusate Sodium 1 Tablet 2 TABLET PO ×2 (09:10→22:51)
[2022-05-03] MEDS: Atorvastatin Calcium 40 MG Tablet PO (09:10)
[2022-05-03] MEDS: Meloxicam 7.5 MG Tablet PO ×2 (09:10→22:51)
[2022-05-03] MEDS: Famotidine 20 MG Tablet PO (09:10)
[2022-05-03] MEDS: Aspirin 81 MG TAB.CHEW PO ×2 (09:10→22:50)
[2022-05-03] MEDS: Lisinopril 40 MG Tablet PO (09:11)
[2022-05-03] MEDS: amLODIPine 5 MG Tablet PO (09:11)
[2022-05-03] MEDS: Ezetimibe 10 MG Tablet PO (09:11)
--- NOTE | 2022-05-03 10:08 | PN.HOSP_ITS ---
Subjective Subjective Patient seen and examined. He had no complaints today. He had an uneventful night and review of systems is otherwise negative. Objective Data Objective Data Vital Signs: Vital Signs Temp Pulse Resp BP Pulse Ox O2 Del Method O2 Flow Rate 99.1 F 81 16 124/81 H 95 Room Air 2 05/03/22 08:00 05/03/22 08:00 05/03/22 08:00 05/03/22 08:00 05/03/22 08:00 05/03/22 09:02 05/03/22 08:00 Oxygen Flow Rate (L/min) 2 Oxygen Delivery Method Room Air Weight: 255 lb 11.779 oz Body Mass Index (BMI) 32.8 Intake & Output: Intake and Output for Last 24 Hours 05/01/22 05/02/22 05/03/22 23:59 23:59 23:59 Intake Total 4786.25 / 5336.25 3585 / 3585 385 / 385 Balance 4786.25 / 5336.25 3585 / 3585 385 / 385 Lab / Micro Data Result Diagrams: 05/03/22 06:15 05/01/22 05:30 Labs: Laboratory Results - last 24 hr 05/03/22 06:15: WBC 6.4, RBC 3.71 L, Hgb 10.8 L, Hct 31.9 L, MCV 86.0, MCH 29.1, MCHC 33.9 D, RDW Std Deviation 41.8, RDW Coeff of Maribell 13.3, Plt Count 304, MPV 10.1 Micro: Microbiology 04/30/22 Unknown Incision/Surgical Site Gram Stain - Final 04/30/22 Unknown Incision/Surgical Site Wound Culture - Final No growth aerobically. 04/30/22 Unknown Incision/Surgical Site Anaerobic Culture - Preliminary No growth in 48 hours. 04/30/22 Unknown Incision/Surgical Site Gram Stain - Final 04/30/22 Unknown Incision/Surgical Site Wound Culture - Final No growth aerobically. 04/30/22 Unknown Incision/Surgical Site Anaerobic Culture - Preliminary No growth in 48 hours. 04/30/22 Unknown Incision/Surgical Site Gram Stain - Final 04/30/22 Unknown Incision/Surgical Site Wound Culture - Final No growth aerobically. 04/30/22 Unknown Incision/Surgical Site Anaerobic Culture - Preliminary No growth in 48 hours. 04/30/22 Unknown Wound - Leg, Right Gram Stain - Final 04/30/22 Unknown Wound - Leg, Right Wound Culture - Final Meth. resistant Staph. aureus 04/30/22 Unknown Wound - Leg, Right Anaerobic Culture - Final No anaerobic bacteria isolated. Physical Exam Const alert, oriented x3 and no apparent distress HEENT head/scalp atraumatic, moist oral mucous membranes and oropharynx normal Head and Scalp: normocephalic Mouth: oral and palatal mucosa normal Eyes PERRL, EOMs intact bilaterally and conjunctivae normal Neck no lymphadenopathy and supple Resp normal respiratory effort, no retractions, no use of accessory muscles and clear to auscultation bilaterally Cardio regular rate, regular rhythm, S1 normal heart sound, S2 normal heart sound and no murmurs GI normal to inspection, nondistended, normoactive bowel sounds, soft to palpation, non-tender and non-distended Extremity Extremity Narrative: intact dressing over right knee, with wound vac in place Neuro oriented x3, CN's II-XII intact bilaterally, moves all extremities and no focal motor deficits Sensorium / Orientation: awake and alert Psych affect normal Assessment & Plan Assessment/Plan (1) Prosthetic joint infection: (2) HTN (hypertension): PLAN: Plan #Right knee post op sinus tract with purulent drainage * s/p sinus tract excision with right total knee polyethylene exchange * today is POD 3 * management as per orthopedic surgery * on IV vancomycin and cefazolin; cultures are pending * incentive spirometry * PT/OT on board * to have PICC line inserted tomorrow, for 6 weeks of IV antibiotics upon discharge * ID on board * #Hypertension: well controlled. On amlodipine and benazepril. #Dyslipidemia: on statin, ezetimibe and vascepa #SHANNA: not on CPAP DVT prophylaxis: on aspirin 81mg bid as per primary team orthopedic surgery Charges/Coding Visit Charges Inpatient E&M: 68641 Subs Hosp L2
[2022-05-03] MEDS: MELATONIN 10 MG TABLET 5 MG PO (22:51)
[2022-05-04 03:00] VITALS: BP 109/74; PULSE 75; RESP 16; TEMP 36.7; O2SAT 98
[2022-05-04 03:07] VITALS: BP 109/74; PULSE 75; RESP 16; TEMP 36.7; O2SAT 98
[2022-05-04 04:51] LABS: Hematocrit 33.7 % (40-54); Hemoglobin 11.4 g/dL (13.0-16.5); Mean Corp Hgb Conc 33.8 g/dL (32-36); Mean Corpuscular Hgb 28.7 pg (27.0-32.0); Mean Corpuscular Volume 84.9 fL (80-94); Mean Platelet Vol. 9.7 fl (6.2-12.0); Platelet Count 353 K/mm3 (150-450); RBC Distribution Width CV 13.2 % (11.6-14.6); RBC Distribution Width SD 40.7 fl (35.1-43.9); Red Blood Count 3.97 M/mm3 (4.6-6.2); White Blood Count 7.4 K/mm3 (4.4-11.0)
[2022-05-04 05:35] LABS: Vancomycin, Trough Level 18.9 ug/mL (5.0-15.0)
--- NOTE | 2022-05-04 06:11 | PCM.RX.CS ---
Consult Pharmacy has been consulted to manage selected antiobiotic: Vancomycin Type of Consult: Follow-up Labs: Sodium 139 mmol/L (136-145) 05/01/22 05:30 Potassium 4.3 mmol/L (3.5-5.1) 05/01/22 05:30 Chloride 106 mmol/L (98-107) 05/01/22 05:30 Carbon Dioxide 29.0 mmol/L (21.0-32.0) 05/01/22 05:30 Anion Gap 4 (5-15) L 05/01/22 05:30 BUN 19 mg/dL (7-18) H 05/01/22 05:30 Creatinine 0.84 mg/dL (0.70-1.30) 05/01/22 05:30 Est GFR (MDRD) Af Amer 119 mL/min (>60) 05/01/22 05:30 Est GFR (MDRD) Non-Af 99 mL/min (>60) 05/01/22 05:30 BUN/Creatinine Ratio 22.5 RATIO (10-20) H 05/01/22 05:30 Glucose 97 mg/dL (74-106) 05/01/22 05:30 Vancomycin Trough 18.9 ug/mL (5.0-15.0) H 05/04/22 04:37 Microbiology: Microbiology 04/30/22 Unknown Incision/Surgical Site Gram Stain - Final 04/30/22 Unknown Incision/Surgical Site Wound Culture - Final No growth aerobically. 04/30/22 Unknown Incision/Surgical Site Anaerobic Culture - Preliminary No growth in 48 hours. 04/30/22 Unknown Incision/Surgical Site Gram Stain - Final 04/30/22 Unknown Incision/Surgical Site Wound Culture - Final No growth aerobically. 04/30/22 Unknown Incision/Surgical Site Anaerobic Culture - Preliminary No growth in 48 hours. 04/30/22 Unknown Incision/Surgical Site Gram Stain - Final 04/30/22 Unknown Incision/Surgical Site Wound Culture - Final No growth aerobically. 04/30/22 Unknown Incision/Surgical Site Anaerobic Culture - Preliminary No growth in 48 hours. 04/30/22 Unknown Wound - Leg, Right Gram Stain - Final 04/30/22 Unknown Wound - Leg, Right Wound Culture - Final Meth. resistant Staph. aureus 04/30/22 Unknown Wound - Leg, Right Anaerobic Culture - Final No anaerobic bacteria isolated. Goal Trough: 15-20 mcg/mL Pharmacy Plan for Drug Dosing: Pharmacy Service will continue to monitor and adjust dosing as required. TROUGH 18.9 @ 7.5 HRS. NO CHANGES, FOLLOW UP TROUGH IN 2 DAYS Follow-Up Labs: Trough Vancomycin Labs to be done on [date and time ordered]: 05/06 @ 4707
[2022-05-04] MEDS: Acetaminophen 500 MG Tablet 1000 MG PO ×2 (06:53→13:50)
[2022-05-04] MEDS: Cefazolin 2 GM in 0.9% Normal Saline 100 ML IV (06:54)
[2022-05-04 07:13] VITALS: O2SAT 92
[2022-05-04] MEDS: Ensure Surgery 237 ML LIQUID PO ×2 (08:32→12:24)
[2022-05-04] MEDS: Aspirin 81 MG TAB.CHEW PO (08:34)
[2022-05-04] MEDS: amLODIPine 5 MG Tablet PO ×2 (08:34→08:35)
[2022-05-04] MEDS: Meloxicam 7.5 MG Tablet PO (08:34)
[2022-05-04] MEDS: Atorvastatin Calcium 40 MG Tablet PO (08:34)
[2022-05-04] MEDS: Senna/Docusate Sodium 1 Tablet 2 TABLET PO (08:35)
[2022-05-04] MEDS: Famotidine 20 MG Tablet PO (08:35)
[2022-05-04] MEDS: Ezetimibe 10 MG Tablet PO (08:36)
[2022-05-04] MEDS: Lisinopril 40 MG Tablet PO (08:36)
[2022-05-04 08:55] VITALS: BP 121/84; PULSE 77; RESP 18; TEMP 36.7; O2SAT 96
--- NOTE | 2022-05-04 09:20 | PCM.PN.HOSP ---
Subjective Subjective Follow-up on postop medical management prosthetic joint infection: Patient was seen and examined. His pain is fairly controlled. Denied any fever or chills. He is getting a PICC line today. Objective Data Objective Data Vital Signs: Vital Signs Temp Pulse Resp BP Pulse Ox O2 Del Method O2 Flow Rate 98.0 F 77 18 121/84 H 96 Room Air 2 05/04/22 08:55 05/04/22 08:55 05/04/22 08:55 05/04/22 08:55 05/04/22 08:55 05/04/22 08:55 05/04/22 03:07 Oxygen Flow Rate (L/min) 2 Oxygen Delivery Method Room Air Weight: 116 kg Body Mass Index (BMI) 32.8 Intake & Output: Intake and Output for Last 24 Hours 05/02/22 05/03/22 05/04/22 23:59 23:59 23:59 Intake Total 3585 / 3585 2075 / 2075 385 / 385 Balance 3585 / 3585 207 / 2074 385 / 385 Lab / Micro Data Result Diagrams: 05/04/22 04:37 05/01/22 05:30 Labs: Laboratory Results - last 24 hr 05/04/22 04:37: Vancomycin Trough 18.9 H 05/04/22 04:37: WBC 7.4, RBC 3.97 L, Hgb 11.4 L, Hct 33.7 L, MCV 84.9, MCH 28.7, MCHC 33.8, RDW Std Deviation 40.7, RDW Coeff of Maribell 13.2, Plt Count 353, MPV 9.7 Micro: Microbiology 04/30/22 Unknown Incision/Surgical Site Gram Stain - Final 04/30/22 Unknown Incision/Surgical Site Wound Culture - Final No growth aerobically. 04/30/22 Unknown Incision/Surgical Site Anaerobic Culture - Preliminary No growth in 48 hours. 04/30/22 Unknown Incision/Surgical Site Gram Stain - Final 04/30/22 Unknown Incision/Surgical Site Wound Culture - Final No growth aerobically. 04/30/22 Unknown Incision/Surgical Site Anaerobic Culture - Preliminary No growth in 48 hours. 04/30/22 Unknown Incision/Surgical Site Gram Stain - Final 04/30/22 Unknown Incision/Surgical Site Wound Culture - Final No growth aerobically. 04/30/22 Unknown Incision/Surgical Site Anaerobic Culture - Preliminary No growth in 48 hours. 04/30/22 Unknown Wound - Leg, Right Gram Stain - Final 04/30/22 Unknown Wound - Leg, Right Wound Culture - Final Meth. resistant Staph. aureus 04/30/22 Unknown Wound - Leg, Right Anaerobic Culture - Final No anaerobic bacteria isolated. Physical Exam Narrative Physical exam: General: Alert, Oriented x3, Cooperative, No apparent distress HEENT: Atraumatic Oral: Moist Mucosa Neck: Supple Lungs: Clear to auscultation Cardiovascular: HS I+II, regular, no murmurs Abdomen: Bowel Sounds Present, Soft, Non Tender Extremities: Right knee wound VAC in place, slight differential warmth Skin: No rashes, No breakdown Neurological: Grossly intact Psych/Mental Status: Appropriate Assessment & Plan Assessment/Plan (1) HTN (hypertension): (2) Prosthetic joint infection: PLAN: Plan 1. Postop day #4 status post sinus tract excision, complete synovectomy with right total knee polyethylene exchange Patient presented with right knee postop sinus tract with purulent drainage Initially intraoperative culture growing MRSA; other intra-Op cultures pending Continue on IV vancomycin Continue on scheduled Tylenol, oxycodone prn 2. Hypertension, controlled, continue amlodipine, lisinopril 3. Hyperlipidemia, continue statin, Zetia, vascepa 4. SHANNA, not on CPAP 5. DVT prophylaxis?on aspirin BID by orthopedics Charges/Coding Visit Charges Inpatient E&M: 03390 Subs Hosp L2
[2022-05-04 10:37] VITALS: O2SAT 95
--- NOTE | 2022-05-04 12:49 | NURSING ---
PICC line being placed by outside agency
--- NOTE | 2022-05-04 13:46 | CASEMGMT ---
Addendum entered by Kelsie Lake 05/04/22 14:23: Per Moisés Aragon, pt to dc wound vac on own on . He made pt aware per his report. Updated [facility]. Addendum entered by Ivis Hook 05/04/22 14:17: Received PC from [facility]. They will see pt tomorrow morning. ID okayed skipping to next dose and starting vanc tomorrow morning. RM CM to pt room. Ortho PA also in room. Pt aware IV med to be delivered to home tonight. Pt states HH called and requested visit time be set up with for tomorrow. PA addressed wound vac. Addendum entered by Ivis Hook 05/04/22 14:00: Notification from [facility]. [facility] to deliver med by 8:00pm. Sent most recent labs via [facility]. Original Note: Received IV script. Uploaded script and PICC insertion documentation to [facility]. Sent to [facility]. PC to [facility] at [facility] to make aware Pt will need start of care this evening at 8:30pm. [facility] will call back to make aware of availability. Faxed script to [facility].
--- NOTE | 2022-05-04 13:51 | NURSING ---
rafidin oral has not arrived and is not in accudose for pt adfministration
--- NOTE | 2022-05-04 14:22 | PCM.PN.ORT ---
Subjective Subjective Patient walking down the hallway with therapy. Patient is ambulating with use of walker. Patient states pain is been very well managed, has not used narcotic pain medication for 2 days. He has only been using Tylenol. Patient has no other complaints at this time. Patient is quite anxious to return home. Objective Data Objective Data Vital Signs: Vital Signs Temp Pulse Resp BP Pulse Ox O2 Del Method O2 Flow Rate 98.0 F 77 18 121/84 H 95 Room Air 2 05/04/22 08:55 05/04/22 08:55 05/04/22 08:55 05/04/22 08:55 05/04/22 10:37 05/04/22 08:55 05/04/22 03:07 Oxygen Flow Rate (L/min) 2 Oxygen Delivery Method Room Air Weight: 116 kg Body Mass Index (BMI) 32.8 Intake & Output: Intake and Output for Last 24 Hours 05/02/22 05/03/22 05/04/22 23:59 23:59 23:59 Intake Total 3585 / 3585 2074 / 2074 1135 / 1135 Balance 3585 / 3585 2074 1135 / 1135 Lab / Micro Data Result Diagrams: 05/04/22 04:37 05/01/22 05:30 Labs: Laboratory Results - last 24 hr 05/04/22 04:37: Vancomycin Trough 18.9 H 05/04/22 04:37: WBC 7.4, RBC 3.97 L, Hgb 11.4 L, Hct 33.7 L, MCV 84.9, MCH 28.7, MCHC 33.8, RDW Std Deviation 40.7, RDW Coeff of Maribell 13.2, Plt Count 353, MPV 9.7 Micro: Microbiology 04/30/22 Unknown Incision/Surgical Site Gram Stain - Final 04/30/22 Unknown Incision/Surgical Site Wound Culture - Final No growth aerobically. 04/30/22 Unknown Incision/Surgical Site Anaerobic Culture - Preliminary No growth in 48 hours. 04/30/22 Unknown Incision/Surgical Site Gram Stain - Final 04/30/22 Unknown Incision/Surgical Site Wound Culture - Final No growth aerobically. 04/30/22 Unknown Incision/Surgical Site Anaerobic Culture - Preliminary No growth in 48 hours. 04/30/22 Unknown Incision/Surgical Site Gram Stain - Final 04/30/22 Unknown Incision/Surgical Site Wound Culture - Final No growth aerobically. 04/30/22 Unknown Incision/Surgical Site Anaerobic Culture - Preliminary No growth in 48 hours. 04/30/22 Unknown Wound - Leg, Right Gram Stain - Final 04/30/22 Unknown Wound - Leg, Right Wound Culture - Final Meth. resistant Staph. aureus 04/30/22 Unknown Wound - Leg, Right Anaerobic Culture - Final No anaerobic bacteria isolated. Physical Exam Narrative Patient is ambulating with a steady gait with use of walker. Patient afebrile. Patient is no respiratory distress speaking in full sentences. Patient's right knee was cool to touch nonerythematous. The dressing was clean dry intact. Patient does have a wound VAC in place. No fluid was noted in the wound VAC. Patient has no calf tenderness. Neurovascular is otherwise intact. Const alert and oriented x3 General Appearance: cooperative HEENT normocephalic Eyes PERRL Resp normal respiratory effort Effort and Inspection: able to speak in complete sentences Cardio regular rate Extremity normal capillary refill Skin no rashes or lesions noted Neuro CN's II-XII intact bilaterally Psych mental status grossly normal and affect normal Assessment & Plan Assessment/Plan (1) HTN (hypertension): (2) Prosthetic joint infection: PLAN: 1. Continue all pain medications as prescribed 2. Patient will continue with antibiotic therapy as directed by infectious disease with home health 3. Continue aspirin 81 mg 1 p.o. every 12 hours for 30 days for postop DVT prophylaxis 4. Patient will remove the wound VAC on , 05/07/2022. 5. Patient will continue to ice and elevate. 6. Continue use of walker 7. Follow-up in [address] Gonzalez, call office for appointment PLAN: Plan 1. Postop day #4 status post sinus tract excision, complete synovectomy with right total knee polyethylene exchange Patient presented with right knee postop sinus tract with purulent drainage Initially intraoperative culture growing MRSA; other intra-Op cultures pending Continue on IV vancomycin Continue on scheduled Tylenol, oxycodone prn 2. Hypertension, controlled, continue amlodipine, lisinopril 3. Hyperlipidemia, continue statin, Zetia, vascepa 4. SHANNA, not on CPAP 5. DVT prophylaxis?on aspirin BID by orthopedics
--- NOTE | 2022-05-04 14:27 | DCINST_ITS ---
Discharge Instructions Diet Discharge Diet: No restrictions Activity Discharge Activity: May Not Shower and Use Walker May resume sexual activity in: No Restrictions Ice area for (Minutes): 30 Weight Bearing Status: Weight bearing as tolerated Keep extremity elevated above heart level: Right Leg Dressing / Incision Call your doctor if your incision/area has: Sudden Increased Bleeding, Increased Pain/ Swelling, Increased Redness and Foul Smelling Discharge Call your doctor if you observe: Fever of 101 or Higher Change Dressing in: 5 days Remove Dressing in: 5 days Follow Up Care Please Follow Up With: Jose Rafael Gonzalez MD When: 2 weeks call for appointment Test Results: Test results from this visit will be discussed in further detail at your follow- up appointment, if applicable. Discharge Plan Admission Admit Date/Time: 04/30/22 08:24 Primary Reason for Your Visit: Washout and polyexchange of a right total knee arthroplasty Attending Provider: Jose Rafael Gonzalez Primary Care Provider: Vik Kim NP Consulting Providers: Jennifer Resendiz ; Yasmine Lopez ; Yasmine Bianchi ; Soy Arredondo ; Jose Le ; Alessandra Thibodeaux ; Rafal Abdi Discharge Orders/Prescriptions Prescriptions: New vancomycin 1.25 gram recon soln 1.25 g IV Q8H Qty: 120 0RF Rx Instructions: stop date 06/11/22 dx: MRSA PJI weekly bmp, cbc, LFT, esr, and vanc trough. Fax to [phone] routine picc care per protocol rifampin 300 mg capsule 300 mg PO BID Qty: 60 2RF Continued atorvastatin 40 mg Tablet 40 mg PO DAILY acetaminophen [Tylenol] 325 mg Tablet 1,000 mg PO TID meloxicam 15 mg Tablet 7.5 mg PO DAILY amlodipine 5 mg Tablet 5 mg PO DAILY aspirin 81 mg Tablet,Delayed Release (Dr/Ec) 81 mg PO DAILY famotidine 20 mg Tablet 20 mg PO DAILY oxycodone 5 mg Tablet 5 mg PO Q6H PRN (Reason: Pain) ezetimibe 10 mg Tablet 10 mg PO DAILY amlodipine-benazepril 5-40 mg Capsule 1 cap PO DAILY icosapent ethyl [Vascepa] 1 gram Capsule 2 g PO BID melatonin 5 mg Capsule 5 mg PO QHS Discontinued doxycycline monohydrate 100 mg Capsule 100 mg PO BID Referrals / Follow Up: Baltes,Vik QUALITY TESTER, QUALITY TESTER-C [Primary Care Provider] - Disposition Disposition (needs filled in before D/C Order can be placed): Home Health Service
[2022-05-04] MEDS: rifAMPin 300 MG Capsule PO (14:31)
--- NOTE | 2022-05-04 14:40 | PN.ID_ITS ---
Physical Exam Narrative Feeling good, has been weight bearing, pain controlled. No fever, no n/v/d. Const alert and no apparent distress Resp normal air movement and clear to auscultation bilaterally Cardio regular rate and regular rhythm GI soft to palpation, non-tender and non-distended Extremity General Extremity: Negative for edema Skin no rashes or lesions noted ID ID: Route of nutrition/ use of supplements: [] Nutritional Intake: [] IV Site: [] Benito Catheter: [] Assessment & Plan Assessment/Plan (1) Prosthetic joint infection: PLAN: R TKA 04/14/22 at [place]. Now s/p OR for I&D and poly exchange 04/30/[address] Gonzalez. Prepatellar pouch now growing MRSA. No systemic symptoms. Ordered picc and 6 weeks iv vanc, stop date 06/11/22, and added po rifampin for biofilm penetration prior to discharge. Counseled him re: risk of hepatoxicity, decreased effectiveness of norvac while on rifampin. ID followup in 2 weeks. Will follow, d/w director of casework
--- NOTE | 2022-05-26 07:57 | DS.PCM_ITS ---
Providers Date of Admission: 04/30/22 Primary Care Physician: DEYSI Garcia Consultations 04/30/22 10:44 Consult: Hospitalist Routine Consulting Provider: [facility] Reason for Consult: post op med management EMERGENT Consult: No Notified: Yes Date Notified: 04/30/22 Time Notified: 15:16 Method of Notification: via spok 04/30/22 12:58 Consult: Infectious Disease Routine Consulting Provider: Jose Le Reason for Consult: right knee pji EMERGENT Consult: No Notified: Yes Date Notified: 04/30/22 Time Notified: 15:48 Method of Notification: Answering Service Diagnosis Discharge Diagnosis (1) Prosthetic joint infection: Status: Acute Code(s): T84.50XA - Infection and inflammatory reaction due to unspecified internal joint prosthesis, initial encounter Plan: 1. Continue all pain medications as prescribed 2. Patient will continue with antibiotic therapy as directed by infectious disease with home health 3. Continue aspirin 81 mg 1 p.o. every 12 hours for 30 days for postop DVT prophylaxis 4. Patient will remove the wound VAC on , 05/07/2022. 5. Patient will continue to ice and elevate. 6. Continue use of walker 7. Follow-up in [address] Gonzalez, call office for appointment Plan 1. Postop day #4 status post sinus tract excision, complete synovectomy with right total knee polyethylene exchange Patient presented with right knee postop sinus tract with purulent drainage Initially intraoperative culture growing MRSA; other intra-Op cultures pending Continue on IV vancomycin Continue on scheduled Tylenol, oxycodone prn 2. Hypertension, controlled, continue amlodipine, lisinopril 3. Hyperlipidemia, continue statin, Zetia, vascepa 4. SHANNA, not on CPAP 5. DVT prophylaxis?on aspirin BID by orthopedics Medications at Discharge Home Medications acetaminophen 325 mg tablet (Tylenol) 1,000 mg PO TID PAIN 04/29/22 amlodipine 5 mg tablet 5 mg PO DAILY BP 04/29/22 amlodipine 5 mg-benazepril 40 mg capsule 1 cap PO DAILY BP 04/29/22 aspirin 81 mg tablet,delayed release 81 mg PO DAILY HEART 04/29/22 atorvastatin 40 mg tablet 40 mg PO DAILY CHOLESTEROL 04/29/22 ezetimibe 10 mg tablet 10 mg PO DAILY CHOLESTEROL 04/29/22 famotidine 20 mg tablet 20 mg PO DAILY SUPPLEEMNT 04/29/22 icosapent ethyl 1 gram capsule (Vascepa) 2 g PO BID SUPPLEMENT 04/29/22 melatonin 5 mg capsule 5 mg PO QHS SLEEP 04/29/22 meloxicam 15 mg tablet 7.5 mg PO DAILY PAIN 04/29/22 oxycodone 5 mg tablet 5 mg PO Q6H PRN Pain 04/29/22 rifampin 300 mg capsule 300 mg PO BID #60 caps 05/04/22 vancomycin 1.25 gram intravenous solution 1.25 g IV Q8H #120 ea 05/04/22 Hospital Course Operations - (Polyexchange with washout) Procedures None Summary of Care Provided Minutes Spent on Discharge: 35 Physical Exam Const alert General Appearance: cooperative HEENT normocephalic Eyes Pupil: PERRL Resp normal respiratory effort Effort and Inspection: able to speak in complete sentences Neuro oriented x3 and CN's II-XII intact bilaterally Psych mental status grossly normal Weight / BMI Weight Weight: 116 kg Body Mass Index (BMI) 32.8 ABG / Lab / Microbiology Data Result Diagrams: 05/04/22 04:37 05/01/22 05:30 Microbiology: Microbiology 04/30/22 Unknown Tissue - Incision site Fungal Smear - Final 04/30/22 Unknown Incision/Surgical Site Acid Fast Bacilli Smear - Final 04/30/22 Unknown Tissue - Incision site Fungal Smear - Final 04/30/22 Unknown Incision/Surgical Site Acid Fast Bacilli Smear - Final 04/30/22 Unknown Tissue - Incision site Fungal Smear - Final 04/30/22 Unknown Incision/Surgical Site Acid Fast Bacilli Smear - Final 04/30/22 Unknown Tissue - Incision site Fungal Smear - Final 04/30/22 Unknown Incision/Surgical Site Acid Fast Bacilli Smear - Final 04/30/22 Unknown Incision/Surgical Site Gram Stain - Final 04/30/22 Unknown Incision/Surgical Site Wound Culture - Final No growth aerobically. 04/30/22 Unknown Incision/Surgical Site Anaerobic Culture - Final No growth in 5 days. 04/30/22 Unknown Incision/Surgical Site Gram Stain - Final 04/30/22 Unknown Incision/Surgical Site Wound Culture - Final No growth aerobically. 04/30/22 Unknown Incision/Surgical Site Anaerobic Culture - Final No growth in 5 days. 04/30/22 Unknown Incision/Surgical Site Gram Stain - Final 04/30/22 Unknown Incision/Surgical Site Wound Culture - Final No growth aerobically. 04/30/22 Unknown Incision/Surgical Site Anaerobic Culture - Final No growth in 5 days. 04/30/22 Unknown Wound - Leg, Right Gram Stain - Final 04/30/22 Unknown Wound - Leg, Right Wound Culture - Final Meth. resistant Staph. aureus 04/30/22 Unknown Wound - Leg, Right Anaerobic Culture - Final No anaerobic bacteria isolated. D/C Instructions Discharge Diet: No restrictions Discharge Activity: May Not Drive and May Shower May shower in (days): 3 Ice area for (Minutes): 30 Weight Bearing Status: Weight bearing as tolerated Keep extremity elevated above heart level: Right Leg Call your doctor if your incision/area has: Sudden Increased Bleeding, Increased Pain/ Swelling, Increased Redness and Foul Smelling Discharge Call your doctor if you observe: Fever of 101 or Higher Change Dressing in: leave in place till F/U Please Follow Up With: Jose Rafael Gonzalez MD When: 2 weeks call for appointment Meaningful Use Info Meaningful Use Diagnoses (Choose all that apply): None applicable Discharge Plan Admission Admit Date/Time: 04/30/22 08:24 Primary Reason for Your Visit: Washout and polyexchange of a right total knee arthroplasty Attending Provider: Jose Rafael Gonzalez Primary Care Provider: Vik Kim NP Consulting Providers: Jennifer Resendiz ; Yasmine Lopez ; Yasmine Bianchi ; Soy Arredondo ; Jose Le ; Alessandra Thibodeaux ; Rafal Abdi Discharge Orders/Prescriptions Prescriptions: New vancomycin 1.25 gram recon soln 1.25 g IV Q8H Qty: 120 0RF Rx Instructions: stop date 06/11/22 dx: MRSA PJI weekly bmp, cbc, LFT, esr, and vanc trough. Fax to [phone] routine picc care per protocol rifampin 300 mg capsule 300 mg PO BID Qty: 60 2RF Continued atorvastatin 40 mg Tablet 40 mg PO DAILY acetaminophen [Tylenol] 325 mg Tablet 1,000 mg PO TID meloxicam 15 mg Tablet 7.5 mg PO DAILY amlodipine 5 mg Tablet 5 mg PO DAILY aspirin 81 mg Tablet,Delayed Release (Dr/Ec) 81 mg PO DAILY famotidine 20 mg Tablet 20 mg PO DAILY oxycodone 5 mg Tablet 5 mg PO Q6H PRN (Reason: Pain) ezetimibe 10 mg Tablet 10 mg PO DAILY amlodipine-benazepril 5-40 mg Capsule 1 cap PO DAILY icosapent ethyl [Vascepa] 1 gram Capsule 2 g PO BID melatonin 5 mg Capsule 5 mg PO QHS Discontinued doxycycline monohydrate 100 mg Capsule 100 mg PO BID Referrals / Follow Up: Vik Kim NP, CEPHALOMETRIC TECHNICIAN-C [Primary Care Provider] - Disposition Disposition (needs filled in before D/C Order can be placed): Home Health Service
== END 2022-05-04 15:45 | disposition home health service (06) | DRG 560 ==
LOC: ACINP 08:28 → MS3 15:33
PROVIDERS: Anesthesiology; Internal Medicine Infectious Disease; Physician Assistant Surgical; Admitting Provider Specialist; PCP Nurse Practitioner Primary Care; Visit Provider Specialist
PROC: 0HDKXZZ Extraction of Right Lower Leg Skin, External Approach (ICD-10-PCS; CPT 27301; principal; 2022-04-30 10:40)
DX: T84.53XA Infection and inflammatory reaction due to internal right knee prosthesis, initial encounter (principal); T81.31XA Disruption of external operation (surgical) wound, not elsewhere classified, initial encounter; D62 Acute posthemorrhagic anemia; S81.001A Unspecified open wound, right knee, initial encounter; F17.220 Nicotine dependence, chewing tobacco, uncomplicated; G47.33 Obstructive sleep apnea (adult) (pediatric); I10 Essential (primary) hypertension; E78.00 Pure hypercholesterolemia, unspecified; E78.5 Hyperlipidemia, unspecified; Z79.82 Long term (current) use of aspirin; B95.62 Methicillin resistant Staphylococcus aureus infection as the cause of diseases classified elsewhere; Y79.2 Prosthetic and other implants, materials and accessory orthopedic devices associated with adverse incidents
CPT/HCPCS: 36415; 36569; 73560; 80048; 80076; 80202; 82962; 83735; 85025; 85027; 85610; 85652; 85730; 86140; 87015; 87070; 87075; 87077; 87102; 87116; 87176; 87186; 87205; 87206; 97110; 97116; 97162; 97166; 97530; 97535; 99251; C1776; J7040; J7050; J7120; A4216; G0463; J2405; J3475

== ENCOUNTER 2022-05-11 09:54 | Outpatient (RCR) | payer OTHER, SELFPAY ==
[2022-05-11 10:57] LABS: Erythrocyte Sedimentation Rate 39 mm/hr (0-20)
[2022-05-11 10:59] LABS: Hematocrit 37.9 % (40-54); Hemoglobin 12.5 g/dL (13.0-16.5); Mean Corpuscular Hgb 28.9 pg (27.0-32.0); Mean Corpuscular Volume 87.7 fL (80-94); Mean Platelet Vol. 10.5 fl (6.2-12.0); Platelet Count 326 K/mm3 (150-450); RBC Distribution Width SD 44.9 fl (35.1-43.9); Red Blood Count 4.32 M/mm3 (4.6-6.2); White Blood Count 6.4 K/mm3 (4.4-11.0)
[2022-05-11 11:05] LABS: AST(SGOT) 23 U/L (15-37); Alanine Aminotransfer ALT/SGPT 38 U/L (16-61); Albumin, Serum 3.4 g/dL (3.2-5.0); Alkaline Phosphatase 76 U/L (45-117); Anion Gap 6 (5-15); BUN 14 mg/dL (7-18); BUN/Creat Ratio 17.9 RATIO (10-20); Bilirubin, Direct 0.08 mg/dL (0.00-0.30); Calcium,Total 9.4 mg/dL (8.5-10.1); Chloride 104 mmol/L (98-107); Creatinine, Serum 0.78 mg/dL (0.70-1.30); EST Glomerular Filtration Rate 107 mL/min (>60); Est Glom Filt Rate - Afr Amer 130 mL/min (>60); Globulin 3.8 g/dL (2.2-4.2); Glucose 88 mg/dL (74-106); Potassium 4.1 mmol/L (3.5-5.1); Protein, Total 7.2 g/dL (6.4-8.2); Sodium Level 140 mmol/L (136-145)
== END 2022-05-11 16:00 | disposition home or self-care (01) ==
LOC: HH 09:54
PROVIDERS: PCP Nurse Practitioner Primary Care; Visit Provider Internal Medicine Infectious Disease
DX: T84.50XA Infection and inflammatory reaction due to unspecified internal joint prosthesis, initial encounter (principal)
CPT/HCPCS: 80048; 80076; 80202; 85027; 85652

== ENCOUNTER → 2022-06-01 | Outpatient (CLI) | payer OTHER, SELFPAY ==
[2022-06-01 10:42] LABS: Hematocrit 38.5 % (40-54); Hemoglobin 12.7 g/dL (13.0-16.5); Mean Corpuscular Hgb 28.5 pg (27.0-32.0); Mean Corpuscular Volume 86.5 fL (80-94); Mean Platelet Vol. 10.4 fl (6.2-12.0); Platelet Count 209 K/mm3 (150-450); RBC Distribution Width CV 13.9 % (11.6-14.6); RBC Distribution Width SD 43.7 fl (35.1-43.9); Red Blood Count 4.45 M/mm3 (4.6-6.2); White Blood Count 4.3 K/mm3 (4.4-11.0)
[2022-06-01 10:58] LABS: AST(SGOT) 30 U/L (15-37); Alanine Aminotransfer ALT/SGPT 69 U/L (16-61); Albumin, Serum 3.5 g/dL (3.2-5.0); Alkaline Phosphatase 68 U/L (45-117); Anion Gap 7 (5-15); BUN 16 mg/dL (7-18); Bilirubin, Direct 0.06 mg/dL (0.00-0.30); Calcium,Total 8.8 mg/dL (8.5-10.1); Chloride 108 mmol/L (98-107); Cholesterol 200 mg/dL (200); Creatinine, Serum 0.84 mg/dL (0.70-1.30); EST Glomerular Filtration Rate 99 mL/min (>60); Est Glom Filt Rate - Afr Amer 119 mL/min (>60); Globulin 3.4 g/dL (2.2-4.2); Glucose 118 mg/dL (74-106); High Density Lipoprotein 36 mg/dL; PSA,Total - Annual Screen 0.46 ng/mL (0.00-4.00); Potassium 4.6 mmol/L (3.5-5.1); Protein, Total 6.9 g/dL (6.4-8.2); Sodium Level 140 mmol/L (136-145); Triglycerides 192 mg/dL; Vancomycin, Trough Level 20.6 ug/mL (5.0-15.0); Very Low Density Lipoprotein 38 mg/dL (5-40)
[2022-06-01 11:31] LABS: Erythrocyte Sedimentation Rate 14 mm/hr (0-20)
== END | disposition home or self-care (01) ==
LOC: LABSPEC 09:56
PROVIDERS: PCP Nurse Practitioner Primary Care; Visit Provider Nurse Practitioner Primary Care
DX: R73.03 Prediabetes (principal); Z12.5 Encounter for screening for malignant neoplasm of prostate
CPT/HCPCS: 80048; 80061; 80076; 80202; 84153; 85027; 85652; G0103

== ENCOUNTER → 2022-06-02 | Outpatient (CLI) | payer OTHER, SELFPAY ==
[2022-06-02] MEDS: Alteplase 2 MG/2 ML Vial IV (13:14)
== END | disposition home or self-care (01) ==
LOC: MEDOUTP 11:36
PROVIDERS: PCP Nurse Practitioner Primary Care; Referring Provider Internal Medicine Infectious Disease; Visit Provider Internal Medicine Infectious Disease
DX: Z45.2 Encounter for adjustment and management of vascular access device (principal)
CPT/HCPCS: 36593; J2997

== ENCOUNTER → 2022-06-03 | Outpatient (CLI) | payer OTHER, SELFPAY ==
[2022-06-03] MEDS: Alteplase 2 MG/2 ML Vial IV (10:32)
[2022-06-03 10:35] VITALS: BP 130/86; PULSE 90; RESP 12; O2SAT 96; BMI 33.1
== END | disposition home or self-care (01) ==
LOC: MEDOUTP 10:17
PROVIDERS: PCP Nurse Practitioner Primary Care; Referring Provider Internal Medicine Infectious Disease; Visit Provider Internal Medicine Infectious Disease
DX: Z45.2 Encounter for adjustment and management of vascular access device (principal)
CPT/HCPCS: 36593; J2997; A4216

== ENCOUNTER 2022-06-08 08:36 | Outpatient (RCR) | payer OTHER, SELFPAY ==
[2022-05-18 12:55] LABS: Erythrocyte Sedimentation Rate 24 mm/hr (0-20)
[2022-05-18 12:57] LABS: Hemoglobin 12.8 g/dL (13.0-16.5); Mean Corp Hgb Conc 32.8 g/dL (32-36); Mean Corpuscular Hgb 29.2 pg (27.0-32.0); Mean Corpuscular Volume 88.8 fL (80-94); Platelet Count 234 K/mm3 (150-450); RBC Distribution Width CV 14.1 % (11.6-14.6); RBC Distribution Width SD 45.6 fl (35.1-43.9); Red Blood Count 4.39 M/mm3 (4.6-6.2); White Blood Count 5.4 K/mm3 (4.4-11.0)
[2022-05-18 13:34] LABS: AST(SGOT) 21 U/L (15-37); Alanine Aminotransfer ALT/SGPT 52 U/L (16-61); Albumin, Serum 3.5 g/dL (3.2-5.0); Alkaline Phosphatase 74 U/L (45-117); Anion Gap 7 (5-15); BUN 16 mg/dL (7-18); Bilirubin, Direct < 0.05 mg/dL (0.00-0.30); Calcium,Total 8.9 mg/dL (8.5-10.1); Chloride 107 mmol/L (98-107); Creatinine, Serum 0.73 mg/dL (0.70-1.30); EST Glomerular Filtration Rate 117 mL/min (>60); Est Glom Filt Rate - Afr Amer 141 mL/min (>60); Globulin 3.6 g/dL (2.2-4.2); Glucose 101 mg/dL (74-106); Protein, Total 7.1 g/dL (6.4-8.2); Sodium Level 140 mmol/L (136-145); Vancomycin, Trough Level 16.4 ug/mL (5.0-15.0)
[2022-05-25 09:55] LABS: Erythrocyte Sedimentation Rate 35 mm/hr (0-20)
[2022-05-25 09:58] LABS: Hematocrit 41.3 % (40-54); Hemoglobin 13.2 g/dL (13.0-16.5); Mean Corpuscular Hgb 27.7 pg (27.0-32.0); Mean Corpuscular Volume 86.8 fL (80-94); Mean Platelet Vol. 10.5 fl (6.2-12.0); Platelet Count 197 K/mm3 (150-450); RBC Distribution Width CV 13.6 % (11.6-14.6); RBC Distribution Width SD 43.7 fl (35.1-43.9); Red Blood Count 4.76 M/mm3 (4.6-6.2); White Blood Count 4.5 K/mm3 (4.4-11.0)
[2022-05-25 10:16] LABS: AST(SGOT) 28 U/L (15-37); Alanine Aminotransfer ALT/SGPT 62 U/L (16-61); Albumin, Serum 3.6 g/dL (3.2-5.0); Alkaline Phosphatase 76 U/L (45-117); Anion Gap 6 (5-15); BUN 19 mg/dL (7-18); BUN/Creat Ratio 22.1 RATIO (10-20); Bilirubin, Direct 0.09 mg/dL (0.00-0.30); Calcium,Total 9.1 mg/dL (8.5-10.1); Chloride 106 mmol/L (98-107); Creatinine, Serum 0.86 mg/dL (0.70-1.30); EST Glomerular Filtration Rate 97 mL/min (>60); Est Glom Filt Rate - Afr Amer 117 mL/min (>60); Globulin 3.7 g/dL (2.2-4.2); Glucose 106 mg/dL (74-106); Potassium 4.3 mmol/L (3.5-5.1); Protein, Total 7.3 g/dL (6.4-8.2); Sodium Level 139 mmol/L (136-145)
[2022-06-08 09:56] LABS: Erythrocyte Sedimentation Rate 19 mm/hr (0-20)
[2022-06-08 09:58] LABS: Hematocrit 40.9 % (40-54); Hemoglobin 13.4 g/dL (13.0-16.5); Mean Corp Hgb Conc 32.8 g/dL (32-36); Mean Corpuscular Volume 85.6 fL (80-94); Mean Platelet Vol. 10.2 fl (6.2-12.0); Platelet Count 229 K/mm3 (150-450); RBC Distribution Width CV 13.6 % (11.6-14.6); RBC Distribution Width SD 42.4 fl (35.1-43.9); Red Blood Count 4.78 M/mm3 (4.6-6.2); White Blood Count 5.6 K/mm3 (4.4-11.0)
[2022-06-08 10:07] LABS: Vancomycin, Trough Level 15.9 ug/mL (5.0-15.0)
[2022-06-08 10:10] LABS: AST(SGOT) 23 U/L (15-37); Alanine Aminotransfer ALT/SGPT 48 U/L (16-61); Albumin, Serum 3.7 g/dL (3.2-5.0); Alkaline Phosphatase 67 U/L (45-117); Anion Gap 8 (5-15); BUN 15 mg/dL (7-18); BUN/Creat Ratio 16.4 RATIO (10-20); Bilirubin, Direct 0.09 mg/dL (0.00-0.30); Chloride 107 mmol/L (98-107); Creatinine, Serum 0.92 mg/dL (0.70-1.30); EST Glomerular Filtration Rate 90 mL/min (>60); Est Glom Filt Rate - Afr Amer 108 mL/min (>60); Globulin 3.4 g/dL (2.2-4.2); Glucose 113 mg/dL (74-106); Potassium 4.6 mmol/L (3.5-5.1); Protein, Total 7.1 g/dL (6.4-8.2); Sodium Level 141 mmol/L (136-145)
== END 2022-06-10 18:00 | disposition home or self-care (01) ==
LOC: HHLAB 08:36
PROVIDERS: PCP Nurse Practitioner Primary Care; Referring Provider Internal Medicine Infectious Disease; Visit Provider Internal Medicine Infectious Disease
DX: T81.31XA Disruption of external operation (surgical) wound, not elsewhere classified, initial encounter (principal); T84.53XA Infection and inflammatory reaction due to internal right knee prosthesis, initial encounter; M54.9 Dorsalgia, unspecified; H91.90 Unspecified hearing loss, unspecified ear; F17.220 Nicotine dependence, chewing tobacco, uncomplicated; Z79.2 Long term (current) use of antibiotics; Z79.1 Long term (current) use of non-steroidal anti-inflammatories (NSAID); Z79.82 Long term (current) use of aspirin; X58.XXXA Exposure to other specified factors, initial encounter
CPT/HCPCS: 80048; 80076; 80202; 85027; 85652